=== PATIENT | male | born 1980 | race Caucasian/White ===

== ENCOUNTER 2018-04-11 20:18 | Inpatient (IN) ==
[2018-04-11] MEDS ORDERED: Acetylcysteine 20% Oral Liq 6,000 MG/30 ML Vial PO ONE (20:51)
[2018-04-11] MEDS ORDERED: Sod Chloride 0.9% Inj 1,000 ML IV.SIG ONE (20:52)
--- NOTE | 2018-04-11 21:08 | ED ---
HPI General Chief complaint: Overdose Stated complaint: poss overdose Time Seen by Provider: 04/11/18 20:53 History of Present Illness HPI narrative: 38-year-old male with history of Parkinson's disease presents with his for evaluation of Tylenol overdose. reports that prior to arrival they were arguing. The patient reportedly took a large amount of Tylenol in order to help him sleep. The reports that it was a 225 tablet bottle of 500 mg Tylenol and a third of it had been used prior to the ingestion. After the ingestion only 20 or 30 tablets were left. Therefore the estimated ingestion was 125 tablets of 500 mg Tylenol at approximately 7:30 PM this evening. No other coingestions. The patient's does report that he is a daily drinker, he denies drinking any alcohol today. Denies illicit drug use. Denies any desire to hurt himself. Denies any suicidal homicidal ideation. He is currently complaining of nausea. He has no other complaints at this time. Related Data Home Medications Medication Instructions Recorded Confirmed No Known Home Medications 04/11/18 04/11/18 Allergies Allergy/AdvReac Type Severity Reaction Status Date / Time No Known Allergies Allergy Verified 04/11/18 20:32 Review of Systems ROS: all other systems reviewed are negative PMFSH Social History Social History Substance History: Active Abuse Second Hand Smoke Exposure: No Smoking Status: Former smoker Tobacco Type: Cigarettes How Often Do You Have a Drink Containing Alcohol: Never Recent Travel in [facility] within the Last 8 Weeks: No Recent Out of Country Travel within the Last 8 Weeks: No Immunization History Tetanus Immunization: <5 Years Exam Narrative Exam Narrative: GENERAL: Well-developed well-nourished male who appears anxious. SKIN: Warm and dry. HEAD: Atraumatic. Normocephalic. EYES: Pupils equal and round. No scleral icterus. No injection or drainage. ENT: No nasal bleeding or discharge. Mucous membranes pink and moist. NECK: Trachea midline. No JVD. CARDIOVASCULAR: Regular rate and rhythm. No murmur appreciated. RESPIRATORY: No accessory muscle use. Clear to auscultation. Breath sounds equal bilaterally. GASTROINTESTINAL: Abdomen soft, mild tenderness to palpation in the epigastrium. MUSCULOSKELETAL: No obvious deformities. No clubbing. No cyanosis. No edema. NEUROLOGICAL: Awake and alert. No obvious cranial nerve deficits. Motor grossly within normal limits. Normal speech. PSYCHIATRIC: Anxious. Insight and judgment appear somewhat limited. Course Initial Documented Vital Signs Temperature 98.0 F 04/11/18 20:26 Pulse Rate 95 H 04/11/18 20:26 Respiratory Rate 18 04/11/18 20:26 Blood Pressure 147/72 H 04/11/18 20:26 Pulse Oximetry 97 04/11/18 20:26 Last Documented Vital Signs Temperature 99 F 04/13/18 20:00 Pulse Rate 63 04/14/18 06:00 Respiratory Rate 23 04/14/18 06:00 Blood Pressure 149/104 H 04/14/18 06:00 Pulse Oximetry 95 04/14/18 06:00 Medical Decision Making MDM Narrative Medical decision making narrative: The patient was placed on ECG monitoring and pulse oximetry. A 12-lead EKG was obtained revealing sinus rhythm with a rate of 96. Lab work has been ordered. Based on the history, the patient ingested a large amount of Tylenol at 7:30 PM this evening, oral Mucomyst protocol has been started. The patient was placed under a Morris act. The patient is declining Zofran for nausea, therefore Phenergan will be ordered for nausea. The patient had persistent nausea, Reglan was administered. His lab work is notable for an initial Tylenol level of 392. His alcohol level was 250. I discussed the patient with the on-call eligibility examiner Dr. Persaud who will admit. Medical Screen Exam Complete: Yes Emergency Medical Condition: Yes Differential Diagnosis Differential Diagnosis: Intentional overdose of Tylenol versus unintentional overdose of Tylenol versus liver failure versus adjustment reaction versus polysubstance abuse Lab Data Result diagrams: 04/13/18 08:03 04/13/18 08:03 Lab Results 04/11/18 04/11/18 04/11/18 Range/Units 21:00 21:00 21:00 WBC 5.6 (4.0-11.0) th/mm3 RBC 5.15 (4.50-5.90) mil/mm3 Hgb 16.7 (13.0-17.0) gm/dL Hct 48.5 (39.0-51.0) % MCV 94.2 (80.0-100.0) fL MCH 32.4 (27.0-34.0) pg MCHC 34.4 (32.0-36.0) % RDW 13.1 (11.6-17.2) % Plt Count 247 (150-450) th/mm3 MPV 7.7 (7.0-11.0) fL Neut % (Auto) 35.8 (16.0-70.0) % Lymph % (Auto) 56.0 H (9.0-44.0) % Maverick % (Auto) 7.3 (0.0-8.0) % Eos % (Auto) 0.3 (0.0-4.0) % Baso % (Auto) 0.6 (0.0-2.0) % Neut # (Auto) 2.0 (1.8-7.7) th/mm3 Lymph # (Auto) 3.1 (1.0-4.8) th/mm3 Maverick # (Auto) 0.4 (0.0-0.9) th/mm3 Eos # (Auto) 0.0 (0.0-0.4) th/mm3 Baso # (Auto) 0.0 (0.0-0.2) th/mm3 WBC Differential . Differential Comment Auto diff final PT 10.8 (9.8-11.6) sec INR 1.1 Ratio APTT 28.5 (23.4-31.7) sec Sodium 143 (136-145) meq/L Potassium 4.1 (3.5-5.1) meq/L Chloride 108 H (98-107) meq/L Carbon Dioxide 26.5 (21.0-32.0) meq/L Anion Gap 9 (5-15) meq/L BUN 9 (7-18) mg/dL Creatinine 0.91 (0.60-1.30) mg/dL Estimated GFR Greater than 89 (>89) mL/min Random Glucose 103 (74-106) mg/dL Calcium 8.7 (8.5-10.1) mg/dL Magnesium 2.1 (1.5-2.5) mg/dL Total Bilirubin 0.3 (0.2-1.0) mg/dL AST 26 (15-37) U/L ALT 31 (12-78) U/L Alkaline Phosphatase 52 (45-117) U/L Total Protein 8.1 (6.4-8.2) g/dL Albumin 4.2 (3.4-5.0) g/dL Lipase 114 (73-393) U/L Nasal Screen MRSA (PCR) (Negative) Salicylates (2.8-20.0) mg/dL Urine Opiates Screen (Neg) Acetaminophen 392.0 H* (10.0-30.0) mcg/mL Ur Barbiturates Screen (Neg) Ur Amphetamines Screen (Neg) U Benzodiazepines Scrn (Neg) Urine Cocaine Screen (Neg) U Cannabinoids Screen (Neg) Serum Alcohol 250 H (0-5) mg/dL 04/11/18 04/12/18 04/12/18 Range/Units 21:00 02:45 03:59 WBC 5.2 (4.0-11.0) th/mm3 RBC 4.65 (4.50-5.90) mil/mm3 Hgb 15.1 (13.0-17.0) gm/dL Hct 44.3 (39.0-51.0) % MCV 95.3 (80.0-100.0) fL MCH 32.5 (27.0-34.0) pg MCHC 34.1 (32.0-36.0) % RDW 13.2 (11.6-17.2) % Plt Count 215 (150-450) th/mm3 MPV 7.7 (7.0-11.0) fL Neut % (Auto) 69.6 (16.0-70.0) % Lymph % (Auto) 25.8 (9.0-44.0) % Maverick % (Auto) 4.4 (0.0-8.0) % Eos % (Auto) 0.0 (0.0-4.0) % Baso % (Auto) 0.2 (0.0-2.0) % Neut # (Auto) 3.6 (1.8-7.7) th/mm3 Lymph # (Auto) 1.3 (1.0-4.8) th/mm3 Maverick # (Auto) 0.2 (0.0-0.9) th/mm3 Eos # (Auto) 0.0 (0.0-0.4) th/mm3 Baso # (Auto) 0.0 (0.0-0.2) th/mm3 WBC Differential . Differential Comment Auto diff final PT (9.8-11.6) sec INR Ratio APTT (23.4-31.7) sec Sodium (136-145) meq/L Potassium (3.5-5.1) meq/L Chloride (98-107) meq/L Carbon Dioxide (21.0-32.0) meq/L Anion Gap (5-15) meq/L BUN (7-18) mg/dL Creatinine (0.60-1.30) mg/dL Estimated GFR (>89) mL/min Random Glucose (74-106) mg/dL Calcium (8.5-10.1) mg/dL Magnesium (1.5-2.5) mg/dL Total Bilirubin (0.2-1.0) mg/dL AST (15-37) U/L ALT (12-78) U/L Alkaline Phosphatase (45-117) U/L Total Protein (6.4-8.2) g/dL Albumin (3.4-5.0) g/dL Lipase (73-393) U/L Nasal Screen MRSA (PCR) Not detected (Negative) Salicylates 1.8 L (2.8-20.0) mg/dL Urine Opiates Screen (Neg) Acetaminophen (10.0-30.0) mcg/mL Ur Barbiturates Screen (Neg) Ur Amphetamines Screen (Neg) U Benzodiazepines Scrn (Neg) Urine Cocaine Screen (Neg) U Cannabinoids Screen (Neg) Serum Alcohol (0-5) mg/dL 04/12/18 04/12/18 04/12/18 Range/Units 03:59 03:59 15:00 WBC (4.0-11.0) th/mm3 RBC (4.50-5.90) mil/mm3 Hgb (13.0-17.0) gm/dL Hct (39.0-51.0) % MCV (80.0-100.0) fL MCH (27.0-34.0) pg MCHC (32.0-36.0) % RDW (11.6-17.2) % Plt Count (150-450) th/mm3 MPV (7.0-11.0) fL Neut % (Auto) (16.0-70.0) % Lymph % (Auto) (9.0-44.0) % Maverick % (Auto) (0.0-8.0) % Eos % (Auto) (0.0-4.0) % Baso % (Auto) (0.0-2.0) % Neut # (Auto) (1.8-7.7) th/mm3 Lymph # (Auto) (1.0-4.8) th/mm3 Maverick # (Auto) (0.0-0.9) th/mm3 Eos # (Auto) (0.0-0.4) th/mm3 Baso # (Auto) (0.0-0.2) th/mm3 WBC Differential Differential Comment PT 11.8 H (9.8-11.6) sec INR 1.2 Ratio APTT 26.1 (23.4-31.7) sec Sodium 147 H 144 (136-145) meq/L Potassium 3.4 L 2.6 L* D (3.5-5.1) meq/L Chloride 111 H 109 H (98-107) meq/L Carbon Dioxide 23.2 24.7 (21.0-32.0) meq/L Anion Gap 13 10 (5-15) meq/L BUN 8 8 (7-18) mg/dL Creatinine 0.89 1.00 (0.60-1.30) mg/dL Estimated GFR Greater than 89 83 L (>89) mL/min Random Glucose 112 H 121 H (74-106) mg/dL Calcium 7.9 L D 7.7 L (8.5-10.1) mg/dL Magnesium 1.9 (1.5-2.5) mg/dL Total Bilirubin 0.4 (0.2-1.0) mg/dL AST 22 (15-37) U/L ALT 28 (12-78) U/L Alkaline Phosphatase 45 (45-117) U/L Total Protein 7.2 D (6.4-8.2) g/dL Albumin 3.7 (3.4-5.0) g/dL Lipase (73-393) U/L Nasal Screen MRSA (PCR) (Negative) Salicylates (2.8-20.0) mg/dL Urine Opiates Screen (Neg) Acetaminophen (10.0-30.0) mcg/mL Ur Barbiturates Screen (Neg) Ur Amphetamines Screen (Neg) U Benzodiazepines Scrn (Neg) Urine Cocaine Screen (Neg) U Cannabinoids Screen (Neg) Serum Alcohol (0-5) mg/dL 02/12/19 02/12/19 02/13/19 Range/Units 17:00 17:42 08:03 WBC 4.5 (4.0-11.0) th/mm3 RBC 4.31 L (4.50-5.90) mil/mm3 Hgb 14.4 (13.0-17.0) gm/dL Hct 41.7 (39.0-51.0) % MCV 96.6 (80.0-100.0) fL MCH 33.5 (27.0-34.0) pg MCHC 34.7 (32.0-36.0) % RDW 13.7 (11.6-17.2) % Plt Count 175 (150-450) th/mm3 MPV 7.5 (7.0-11.0) fL Neut % (Auto) (16.0-70.0) % Lymph % (Auto) (9.0-44.0) % Maverick % (Auto) (0.0-8.0) % Eos % (Auto) (0.0-4.0) % Baso % (Auto) (0.0-2.0) % Neut # (Auto) (1.8-7.7) th/mm3 Lymph # (Auto) (1.0-4.8) th/mm3 Maverick # (Auto) (0.0-0.9) th/mm3 Eos # (Auto) (0.0-0.4) th/mm3 Baso # (Auto) (0.0-0.2) th/mm3 WBC Differential Differential Comment PT (9.8-11.6) sec INR Ratio APTT (23.4-31.7) sec Sodium (136-145) meq/L Potassium 2.7 L* (3.5-5.1) meq/L Chloride (98-107) meq/L Carbon Dioxide (21.0-32.0) meq/L Anion Gap (5-15) meq/L BUN (7-18) mg/dL Creatinine (0.60-1.30) mg/dL Estimated GFR (>89) mL/min Random Glucose (74-106) mg/dL Calcium (8.5-10.1) mg/dL Magnesium (1.5-2.5) mg/dL Total Bilirubin (0.2-1.0) mg/dL AST (15-37) U/L ALT (12-78) U/L Alkaline Phosphatase (45-117) U/L Total Protein (6.4-8.2) g/dL Albumin (3.4-5.0) g/dL Lipase (73-393) U/L Nasal Screen MRSA (PCR) (Negative) Salicylates (2.8-20.0) mg/dL Urine Opiates Screen Neg (Neg) Acetaminophen (10.0-30.0) mcg/mL Ur Barbiturates Screen Neg (Neg) Ur Amphetamines Screen Neg (Neg) U Benzodiazepines Scrn Neg (Neg) Urine Cocaine Screen Neg (Neg) U Cannabinoids Screen Neg (Neg) Serum Alcohol (0-5) mg/dL 04/13/18 04/13/18 04/13/18 Range/Units 08:03 08:03 16:28 WBC (4.0-11.0) th/mm3 RBC (4.50-5.90) mil/mm3 Hgb (13.0-17.0) gm/dL Hct (39.0-51.0) % MCV (80.0-100.0) fL MCH (27.0-34.0) pg MCHC (32.0-36.0) % RDW (11.6-17.2) % Plt Count (150-450) th/mm3 MPV (7.0-11.0) fL Neut % (Auto) (16.0-70.0) % Lymph % (Auto) (9.0-44.0) % Maverick % (Auto) (0.0-8.0) % Eos % (Auto) (0.0-4.0) % Baso % (Auto) (0.0-2.0) % Neut # (Auto) (1.8-7.7) th/mm3 Lymph # (Auto) (1.0-4.8) th/mm3 Maverick # (Auto) (0.0-0.9) th/mm3 Eos # (Auto) (0.0-0.4) th/mm3 Baso # (Auto) (0.0-0.2) th/mm3 WBC Differential Differential Comment PT 12.8 H 12.1 H (9.8-11.6) sec INR 1.3 1.2 Ratio APTT (23.4-31.7) sec Sodium 144 (136-145) meq/L Potassium 3.4 L (3.5-5.1) meq/L Chloride 111 H (98-107) meq/L Carbon Dioxide 24.2 (21.0-32.0) meq/L Anion Gap 9 (5-15) meq/L BUN 4 L (7-18) mg/dL Creatinine 0.67 (0.60-1.30) mg/dL Estimated GFR Greater than 89 (>89) mL/min Random Glucose 92 (74-106) mg/dL Calcium 7.6 L (8.5-10.1) mg/dL Magnesium (1.5-2.5) mg/dL Total Bilirubin (0.2-1.0) mg/dL AST (15-37) U/L ALT (12-78) U/L Alkaline Phosphatase (45-117) U/L Total Protein (6.4-8.2) g/dL Albumin (3.4-5.0) g/dL Lipase (73-393) U/L Nasal Screen MRSA (PCR) (Negative) Salicylates (2.8-20.0) mg/dL Urine Opiates Screen (Neg) Acetaminophen Less than 2.0 L (10.0-30.0) mcg/mL Ur Barbiturates Screen (Neg) Ur Amphetamines Screen (Neg) U Benzodiazepines Scrn (Neg) Urine Cocaine Screen (Neg) U Cannabinoids Screen (Neg) Serum Alcohol (0-5) mg/dL Discharge Plan Discharge Disposition Patient Disposition: ED Admit(ED Internal Use Only) Discharge Condition Condition: Stable Discharge Order Discharge Orders: ED Use Only Admit Order (Routine); Ordered 04/11/18 Ordered By: Edy Mohan Discharge Details Diagnosis: Acetaminophen overdose, Alcohol intoxication Physicians Team ED Provider: Shayy Morse ED Midlevel Provider: Edy Mohan Primary Care Provider: UNKNOWN, Attending Provider: Anni Stevenson Other Providers: Dayo Weaver Status ED Status: Left Department Discharge Information Discharge Date/Time: 04/12/18 03:00
[2018-04-11 21:19] LABS: Baso % (Auto) 0.6 % (0.0-2.0); Eos % (Auto) 0.3 % (0.0-4.0); Hematocrit 48.5 % (39.0-51.0); Hemoglobin 16.7 gm/dL (13.0-17.0); Lymph # (Auto) 3.1 th/mm3 (1.0-4.8); Mean Corpuscular HGB Conc 34.4 % (32.0-36.0); Mean Corpuscular Hemoglobin 32.4 pg (27.0-34.0); Mean Corpuscular Volume 94.2 fL (80.0-100.0); Mean Platelet Volume 7.7 fL (7.0-11.0); Mono # (Auto) 0.4 th/mm3 (0.0-0.9); Mono % (Auto) 7.3 % (0.0-8.0); Neut % (Auto) 35.8 % (16.0-70.0); Platelet Count 247 th/mm3 (150-450); Red Blood Count 5.15 mil/mm3 (4.50-5.90); Red Cell Distribution Width 13.1 % (11.6-17.2); White Blood Count 5.6 th/mm3 (4.0-11.0)
[2018-04-11] MEDS: Acetylcysteine 20% Oral Liq 6,000 MG/30 ML Vial PO SCH (21:49)
[2018-04-11 22:01] LABS: Activated Partial Thrombo Time 28.5 sec (23.4-31.7); INR 1.1 Ratio; Prothrombin Time 10.8 sec (9.8-11.6)
[2018-04-11 22:25] LABS: Alanine Aminotransferase 31 U/L (12-78); Albumin 4.2 g/dL (3.4-5.0); Alkaline Phosphatase 52 U/L (45-117); Anion Gap 9 meq/L (5-15); Aspartate Aminotransferase 26 U/L (15-37); Blood Urea Nitrogen 9 mg/dL (7-18); Calcium 8.7 mg/dL (8.5-10.1); Carbon Dioxide 26.5 meq/L (21.0-32.0); Chloride 108 meq/L (98-107); Glomerular Filtration Rate Greater Than 89 mL/min (>89); Glucose,Random 103 mg/dL (74-106); Lipase 114 U/L (73-393); Magnesium 2.1 mg/dL (1.5-2.5); Potassium 4.1 meq/L (3.5-5.1); Sodium 143 meq/L (136-145); Total Protein 8.1 g/dL (6.4-8.2)
[2018-04-11 22:28] LABS: Alcohol 250 mg/dL (0-5)
--- NOTE | 2018-04-11 23:25 | P.HPCC ---
History of Present Illness Primary Care Physician: UNKNOWN History of Present Illness: 38-year-old male with history of Parkinson's disease presents with his for evaluation of Tylenol overdose. reports that prior to arrival they were arguing. The patient reportedly took a large amount of Tylenol in order to help him sleep. The reports that it was a 225 tablet bottle of 500 mg Tylenol and a third of it had been used prior to the ingestion. After the ingestion only 20 or 30 tablets were left. Therefore the estimated ingestion was 125 tablets of 500 mg Tylenol at approximately 7:30 PM this evening. No other coingestions. The patient's does report that he is a daily drinker, he denies drinking any alcohol today. Denies illicit drug use. Denies any desire to hurt himself. Denies any suicidal homicidal ideation. He is currently complaining of nausea. He has no other complaints at this time. Inpatient Certification: I certify that the inpatient services were ordered in accordance with Medicare regulations governing the order. This includes certification that hospital inpatient services are reasonable and necessary and in the case of services not specified as inpatient-only under 42 CFR 419.22(n), that they are appropriately provided as inpatient services in accordance to with the 2-midnight benchmark under 43 CFR 412.3(e) Review of Systems All other systems reviewed negative except as stated in HPI [facility] - History History Provided By: Patient, Family Member - Medical History Medical History: Medical History (Last Reviewed 04/11/18 @ 20:47 by Norma Moncada RN) AA (alcohol abuse) Hypertension Parkinson disease - Surgical History Surgical History: Surgical History (Last Reviewed 04/11/18 @ 20:47 by Norma Moncada RN) S/P deep brain stimulator placement - Tobacco History Tobacco Use In Past 30 Days: Yes Smoking Status: Current every day smoker Tobacco Type: Cigarettes - Alcohol History How Often Do You Have a Drink Containing Alcohol: Monthly or less - Travel History Recent Travel in the [place] Within the Last 8 Weeks: No Recent Travel Out of the Country Within the Last 8 Weeks: No - Immunization History Tetanus Immunization: <5 Years Medications and Allergies Active Medications: Active Medications Acetylcysteine (Mucomyst 20% Oral Liq) 5,550 mg 70 mg/kg (5550 mg) PO Q4H [facility] Stop: 04/14/18 13:01 Last Admin: 04/11/18 21:49 Dose: Not Given Sodium Chloride (Ns Flush) 2 ml IV.FLUSH PRN PRN PRN Reason: FLUSH AFTER USING IV ACCESS Current Medications Acetylcysteine (Mucomyst 20% Oral Liq) 5,550 mg 70 mg/kg (5550 mg) PO Q4H [facility] Stop: 04/14/18 13:01 Last Admin: 04/12/18 01:15 Dose: 5,550 mg Al Hydroxide/Mg Hydroxide (Milk Of Magnesia Liq) 30 ml PO Q12H PRN PRN Reason: Mild Constipation Albuterol (Duoneb Neb (Prn)) 1 ampul NEB Q2HR NEB PRN PRN Reason: WHEEZING Bisacodyl (Dulcolax Supp) 10 mg RECTAL DAILY PRN PRN Reason: SEVERE CONSITIPATION Chlorhexidine Gluconate (Chlorhexidine 2% Cloth) 3 pack TOPICAL DAILY@0400 [facility] Stop: 04/17/18 03:59 Chlorhexidine Gluconate (Chlorhexidine 2% Cloth) 3 pack TOPICAL DAILY@0400 PRN PRN Reason: Extra cloth needed Stop: 04/17/18 03:59 Sodium Chloride (Ns Inj) 1,000 mls @ 84 mls/hr IV.CONT .[id number] [facility] Last Admin: 04/12/18 01:15 Dose: 84 mls/hr Lactulose (Lactulose Liq) 30 ml PO DAILY PRN PRN Reason: SEVERE CONSITIPATION Ondansetron HCl (Zofran Inj) 4 mg IV.PUSH Q6H PRN PRN Reason: NAUSEA OR VOMITING Senna/Docusate Sodium (Ariadne-Colace) 1 tab PO BID [facility] Sennosides (Senokot) 17.2 mg PO Q12H PRN PRN Reason: Moderate Constipation Sodium Chloride (Ns Flush) 2 ml IV.FLUSH PRN PRN PRN Reason: FLUSH AFTER USING IV ACCESS Sodium Chloride (Ns Flush) 2 ml IV.FLUSH BID [facility] Sodium Chloride (Ns Flush) 2 ml IV.FLUSH PRN PRN PRN Reason: FLUSH AFTER USING IV ACCESS Allergies Allergy/AdvReac Type Severity Reaction Status Date / Time No Known Allergies Allergy Verified 04/11/18 20:32 Home Medications Medication Instructions Recorded Confirmed Type No Known Home Medications 04/11/18 04/11/18 History Results - Labs CBC & Chem 7: 04/11/18 21:00 04/11/18 21:00 Labs: Short CBC 04/11/18 Range/Units 21:00 WBC 5.6 (4.0-11.0) th/mm3 Hgb 16.7 (13.0-17.0) gm/dL Hct 48.5 (39.0-51.0) % Plt Count 247 (150-450) th/mm3 BMP 04/11/18 21:00 Sodium 143 Potassium 4.1 Chloride 108 H Carbon Dioxide 26.5 BUN 9 Creatinine 0.91 Calcium 8.7 Liver Function 04/11/18 Range/Units 21:00 Total Bilirubin 0.3 (0.2-1.0) mg/dL AST 26 (15-37) U/L ALT 31 (12-78) U/L Alkaline Phosphatase 52 (45-117) U/L Albumin 4.2 (3.4-5.0) g/dL Exam Vital signs: Vital Signs 04/11/18 20:26 04/11/18 20:46 04/11/18 21:15 Temperature 98.0 F Pulse Rate 95 H 95 H Respiratory Rate 18 18 Blood Pressure 147/72 H 145/75 H Pulse Oximetry 97 94 L 98 Intake & Output 04/11/18 04/11/18 04/12/18 06:59 18:59 06:59 Weight 79.379 kg - Constitutional moderate distress - Routine HEENT Exam Head: Present: atraumatic Eye: Present: PERRL, normal accommodation ENT: Present: mucous membranes dry - Routine Neck Exam Present: supple, full ROM. Absent: JVD, carotid bruit - Routine Respiratory Exam Absent: accessory muscle use, wheezes, crackles - Routine Cardiovascular Exam Present: RRR, S1, S2 - Routine Abdominal Exam Present: soft, normoactive bowel sounds - Routine Extremities Exam Absent: cyanosis, clubbing, edema - Routine Skin Exam Present: intact. Absent: cyanosis, erythema - Routine Neurological Exam Present: alert, oriented X3, moving all extremities Septic Shock Reassessment Septic shock perfusion: reassessment completed Caprini VTE Risk Assessment Caprini VTE Risk Assessment: Moderate/High Risk (score >= 2) Caprini Risk Assessment Model: Point Value = 1 Point Value = 2 Point Value = 3 Point Value = 5 Age 41-60 Minor surgery BMI > 25 kg/m2 Swollen legs Varicose veins or History of unexplained or recurrent spontaneous Oral contraceptives or hormone replacement Sepsis (< 1 month) Serious lung disease, including pneumonia (< 1 month) Abnormal pulmonary function Acute myocardial infarction Congestive heart failure (< 1 month) History of inflammatory bowel disease Medical patient at bed rest Age 61-74 Arthroscopic surgery Major open surgery (> 45 min) Laparoscopic surgery (> 45 min) Malignancy Confined to bed (> 72 hours) Immobilizing plaster cast Central venous access Age >= 75 History of VTE Family history of VTE Factor V Leiden Prothrombin [id number] Lupus anticoagulant Anticardiolipin antibodies Elevated serum homocysteine Heparin-induced thrombocytopenia Other congenital or acquired thrombophilia Stroke (< 1 month) Elective arthroplasty Hip, pelvis, or leg fracture Acute spinal cord injury (< 1 month) Prophylaxis Regimen: Total Risk Factor Score Risk Level Prophylaxis Regimen 0-1 Low Early ambulation 2 Moderate Order ONE of the following: *Sequential Compression Device (SCD) *Heparin 5000 units SQ BID 3-4 Higher Order ONE of the following medications: *Heparin 5000 units SQ TID *Enoxaparin/Lovenox 40 mg SQ daily (WT < 150 kg, CrCl > 30 mL/min) *Enoxaparin/Lovenox 30 mg SQ daily (WT < 150 kg, CrCl > 10-29 mL/min) *Enoxaparin/Lovenox 30 mg SQ BID (WT < 150 kg, CrCl > 30 mL/min) AND/OR *Sequential Compression Device (SCD) 5 or more Highest Order ONE of the following medications: *Heparin 5000 units SQ TID (Preferred with Epidurals) *Enoxaparin/Lovenox 40 mg SQ daily (WT < 150 kg, CrCl > 30 mL/min) *Enoxaparin/Lovenox 30 mg SQ daily (WT < 150 kg, CrCl > 10-29 mL/min) *Enoxaparin/Lovenox 30 mg SQ BID (WT < 150 kg, CrCl > 30 mL/min) AND *Sequential Compression Device (SCD) Assessment and Plan - Assessment and Plan Plan: Tylenol overdose -Poison Control Center appreciated -Acetylcysteine infusion -Frequent labs -Monitor for liver failure Hypertension -Labetalol PRN to keep SBP less than 140 -Resume home meds when available and okay to p.o. Parkinson's disease -Resume home meds when available DVT GI prophylaxis -Teds SCDs -Early aggressive mobilization -Hold pharmacological DVT prophylaxis due to potential liver failure -Pepcid 35 minutes of critical care
[2018-04-11] MEDS ORDERED: Bisacodyl 10 MG Supp RECTAL PRN (23:33)
[2018-04-12] MEDS: Acetylcysteine 20% Oral Liq 6,000 MG/30 ML Vial PO SCH ×6 (01:15→20:13)
[2018-04-12] MEDS: Sod Chloride 0.9% Inj 1,000 ML IV.CONT SCH ×2 (01:15→15:39)
[2018-04-12] MEDS: Chlorhexidine Gluconate 2% 1 Pack (2 Cloths) TOPICAL SCH (03:35)
[2018-04-12] MEDS ORDERED: Chlorhexidine Gluconate 2% 1 Pack (2 Cloths) TOPICAL PRN (04:00)
[2018-04-12 05:05] LABS: Baso % (Auto) 0.2 % (0.0-2.0); Hematocrit 44.3 % (39.0-51.0); Hemoglobin 15.1 gm/dL (13.0-17.0); Lymph # (Auto) 1.3 th/mm3 (1.0-4.8); Lymph % (Auto) 25.8 % (9.0-44.0); Mean Corpuscular HGB Conc 34.1 % (32.0-36.0); Mean Corpuscular Hemoglobin 32.5 pg (27.0-34.0); Mean Corpuscular Volume 95.3 fL (80.0-100.0); Mean Platelet Volume 7.7 fL (7.0-11.0); Mono # (Auto) 0.2 th/mm3 (0.0-0.9); Mono % (Auto) 4.4 % (0.0-8.0); Neut # (Auto) 3.6 th/mm3 (1.8-7.7); Neut % (Auto) 69.6 % (16.0-70.0); Platelet Count 215 th/mm3 (150-450); Red Blood Count 4.65 mil/mm3 (4.50-5.90); Red Cell Distribution Width 13.2 % (11.6-17.2); White Blood Count 5.2 th/mm3 (4.0-11.0)
[2018-04-12 05:06] LABS: Activated Partial Thrombo Time 26.1 sec (23.4-31.7); INR 1.2 Ratio; Prothrombin Time 11.8 sec (9.8-11.6)
[2018-04-12 05:21] LABS: Alanine Aminotransferase 28 U/L (12-78); Albumin 3.7 g/dL (3.4-5.0); Anion Gap 13 meq/L (5-15); Aspartate Aminotransferase 22 U/L (15-37); Blood Urea Nitrogen 8 mg/dL (7-18); Calcium 7.9 mg/dL (8.5-10.1); Carbon Dioxide 23.2 meq/L (21.0-32.0); Chloride 111 meq/L (98-107); Glomerular Filtration Rate Greater Than 89 mL/min (>89); Glucose,Random 112 mg/dL (74-106); Magnesium 1.9 mg/dL (1.5-2.5); Potassium 3.4 meq/L (3.5-5.1); Sodium 147 meq/L (136-145)
[2018-04-12 05:24] LABS: Alkaline Phosphatase 45 U/L (45-117); Total Protein 7.2 g/dL (6.4-8.2)
[2018-04-12] MEDS: Senna/Docusate Sodium 8.6/50 MG Tablet PO SCH ×2 (09:50→20:14)
--- NOTE | 2018-04-12 10:58 | P.PNCC ---
Subjective Subjective Remarks/Hospital Course: 04/12: No acute changes overnight Dr. Peters psychiatrist at bedside evaluation performed plan for Morris Act. Resolution of nausea. Clear liquid diet initiated. Discussed with poison control recent lab values. Objective Vital Signs / I&O: Vital Signs 04/11/18 20:26 04/11/18 20:46 04/11/18 21:15 Temperature 98.0 F Pulse Rate 95 H 95 H Respiratory Rate 18 18 Blood Pressure 147/72 H 145/75 H Pulse Oximetry 97 94 L 98 04/11/18 23:00 04/12/18 01:00 04/12/18 03:00 Temperature 98 F Pulse Rate 66 59 L 63 Respiratory Rate 15 17 17 Blood Pressure 138/76 114/67 121/71 Pulse Oximetry 97 98 97 04/12/18 03:24 04/12/18 03:26 04/12/18 03:30 Temperature Pulse Rate 79 69 57 L Respiratory Rate 28 H 17 Blood Pressure 115/64 Pulse Oximetry 96 95 04/12/18 03:45 04/12/18 04:00 04/12/18 04:15 Temperature 98.0 F Pulse Rate 55 L 57 L 61 Respiratory Rate 21 32 H 19 Blood Pressure 101/56 L 101/55 L 85/53 L Pulse Oximetry 94 L 96 94 L 04/12/18 04:30 04/12/18 04:45 04/12/18 05:00 Temperature Pulse Rate 60 54 L 56 L Respiratory Rate 20 18 20 Blood Pressure 108/69 116/72 120/74 Pulse Oximetry 94 L 93 L 94 L 04/12/18 05:15 04/12/18 05:30 04/12/18 05:45 Temperature Pulse Rate 56 L 64 56 L Respiratory Rate 20 23 34 H Blood Pressure 102/66 125/99 H 112/77 Pulse Oximetry 96 93 L 94 L 04/12/18 06:00 04/12/18 06:15 Temperature Pulse Rate 59 L 55 L Respiratory Rate 21 20 Blood Pressure 117/72 119/73 Pulse Oximetry 94 L 93 L Intake & Output 04/11/18 04/12/18 04/12/18 18:59 06:59 18:59 Intake Total 1223 / 1223 Balance 1223 / 1223 Weight 86 kg Intake: IV 1223 / 1223 NS Inj 1,000 ML @ 84 mls/hr IV. 223 / 223 CONT .[id number] [facility] Rx#:[id number] NS Inj 1,000 ML @ Wide Open IV. 1000 / 1000 SIG BOLUS ONE Rx#:[id number] Other: Weight On Admission 85.5 kg Result Diagrams: 04/12/18 03:59 04/12/18 03:59 Other Results: Laboratory Results WBC 5.2 th/mm3 (4.0-11.0) 04/12/18 03:59 RBC 4.65 mil/mm3 (4.50-5.90) 04/12/18 03:59 Hgb 15.1 gm/dL (13.0-17.0) 04/12/18 03:59 Hct 44.3 % (39.0-51.0) 04/12/18 03:59 MCV 95.3 fL (80.0-100.0) 04/12/18 03:59 MCH 32.5 pg (27.0-34.0) 04/12/18 03:59 MCHC 34.1 % (32.0-36.0) 04/12/18 03:59 RDW 13.2 % (11.6-17.2) 04/12/18 03:59 Plt Count 215 th/mm3 (150-450) 04/12/18 03:59 MPV 7.7 fL (7.0-11.0) 04/12/18 03:59 Neut % (Auto) 69.6 % (16.0-70.0) 04/12/18 03:59 Lymph % (Auto) 25.8 % (9.0-44.0) 04/12/18 03:59 [place] % (Auto) 4.4 % (0.0-8.0) 04/12/18 03:59 Eos % (Auto) 0.0 % (0.0-4.0) 04/12/18 03:59 Baso % (Auto) 0.2 % (0.0-2.0) 04/12/18 03:59 Neut # (Auto) 3.6 th/mm3 (1.8-7.7) 04/12/18 03:59 Lymph # (Auto) 1.3 th/mm3 (1.0-4.8) 04/12/18 03:59 [place] # (Auto) 0.2 th/mm3 (0.0-0.9) 04/12/18 03:59 Eos # (Auto) 0.0 th/mm3 (0.0-0.4) 04/12/18 03:59 Baso # (Auto) 0.0 th/mm3 (0.0-0.2) 04/12/18 03:59 WBC Differential . 04/12/18 03:59 Differential Comment Auto diff final 04/12/18 03:59 PT 11.8 sec (9.8-11.6) H 04/12/18 03:59 INR 1.2 Ratio 04/12/18 03:59 APTT 26.1 sec (23.4-31.7) 04/12/18 03:59 Sodium 147 meq/L (136-145) H 04/12/18 03:59 Potassium 3.4 meq/L (3.5-5.1) L 04/12/18 03:59 Chloride 111 meq/L (98-107) H 04/12/18 03:59 Carbon Dioxide 23.2 meq/L (21.0-32.0) 04/12/18 03:59 Anion Gap 13 meq/L (5-15) 04/12/18 03:59 BUN 8 mg/dL (7-18) 04/12/18 03:59 Creatinine 0.89 mg/dL (0.60-1.30) 04/12/18 03:59 Estimated GFR Greater than 89 mL/min (>89) 04/12/18 03:59 Random Glucose 112 mg/dL (74-106) H 04/12/18 03:59 Calcium 7.9 mg/dL (8.5-10.1) L D 04/12/18 03:59 Magnesium 1.9 mg/dL (1.5-2.5) 04/12/18 03:59 Total Bilirubin 0.4 mg/dL (0.2-1.0) 04/12/18 03:59 AST 22 U/L (15-37) 04/12/18 03:59 ALT 28 U/L (12-78) 04/12/18 03:59 Alkaline Phosphatase 45 U/L (45-117) 04/12/18 03:59 Total Protein 7.2 g/dL (6.4-8.2) D 04/12/18 03:59 Albumin 3.7 g/dL (3.4-5.0) 04/12/18 03:59 Lipase 114 U/L (73-393) 04/11/18 21:00 Nasal Screen MRSA (PCR) Not detected (Negative) 04/12/18 02:45 Salicylates 1.8 mg/dL (2.8-20.0) L 04/11/18 21:00 Acetaminophen 392.0 mcg/mL (10.0-30.0) H* 04/11/18 21:00 Serum Alcohol 250 mg/dL (0-5) H 04/11/18 21:00 Objective Remarks: GENERAL: Is a well-developed well-nourished male, flat affect noted SKIN: Warm and dry. HEAD: Atraumatic. Normocephalic. EYES: Pupils equal and round. No scleral icterus. No injection or drainage. ENT: No nasal bleeding or discharge. Mucous membranes pink and moist. NECK: Trachea midline. No JVD. CARDIOVASCULAR: Normal rate, regular rhythm. RESPIRATORY: No accessory muscle use. Clear to auscultation. Breath sounds equal bilaterally. GASTROINTESTINAL: Abdomen soft, non-tender, nondistended. No guarding. MUSCULOSKELETAL: Extremities without clubbing, cyanosis, or edema. No obvious deformities. NEUROLOGICAL: Awake and alert. RASS 0. No gross focal/sensory deficits. Follows commands in all 4 extremities. Assessment and Plan - Assessment and Plan Plan: Tylenol overdose -Poison Control Center following -Acetylcysteine infusion -Frequent labs -Monitor for liver failure -Follow-up BMP and INR this afternoon -Initiate clear liquid diet for lunch will advance as tolerated Hypertension -Labetalol PRN to keep SBP less than 140 -Resume home meds when available and okay to p.o. Parkinson's disease -Resume home meds when available DVT GI prophylaxis -Teds SCDs -Early aggressive mobilization -Hold pharmacological DVT prophylaxis due to potential liver failure -Pepcid Level 3 follow-up Code Status: Full Discussed Condition With: Dr. Peters, psychiatrist, patient and [employer] at bedside
--- NOTE | 2018-04-12 11:30 | P.DIET ---
Nutritional Evaluation Type of nutrition evaluation: initial Nutrition screening: Weight Loss > 10 lbs (Weight loss screen) Objective - Diagnosis Tylenol overdose - Objective Body Mass Index: 26.4 [place] body weight: 81 kg (178) % IBW: 108 Body Weight Used for Calculations: Actual (86kg) Energy Needs - Lower Range (kCal/kg): 25 Energy Needs - Upper Range (kCal/kg): 30 Lower Limit kCal/kg (kCals): 2,150 Upper Limit kCal/kg (kCals): 2,580 Lower Limit Protein Factor (Grams per Kg): 0.8 Upper Limit Protein Factor (Grams per Kg): 1.0 Lower Protein Needs (Protein): 69 Upper Protein Needs (Protein): 86 Dietitian Reviewed in Medical Record: Current diet, Curent medications, Intake & Output, Labs, Medical history Diet Order: Clear liquids Objective Comments: PMH; Parkinsons, HTN, alcohol abuse Labs; NA 147, K 3.4, Glucose 112 Medications; reviewed Assessment Assessment: Weight loss screen; Pt presents to ED with after overdose from tylenol and is currently at nutritional risk related to recent unplanned weight loss. Pt currently ordered for clear liquid diet with PO intake not yet established. Will send Ensure clear BID in order to support PO intake and minimize further weight loss. Each can of ensure clear will provide 200kcal and 7g protein. Labs and medications reviewed. Will continue to monitor PO intake and supplement acceptance. Recommendations: 1. Ensure clear nutritional supplement BID 2. Monitor PO intake and supplement acceptance Dietitian to Monitor: Lab values, Supplement acceptance, Diet tolerance, PO Intake, Medical course
--- NOTE | 2018-04-12 12:31 | ECG ---
Date Performed: 04/11/2018 Time Performed: 20:45:35 PTAGE: 38 years EKG: Sinus rhythm NORMAL ECG NO PREVIOUS TRACING DOCTOR: Basilia Li Interpretating Date/Time 04/12/2018 12:27:29
--- NOTE | 2018-04-12 14:12 | P.CONPSY ---
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 reports that prior to arrival they were arguing. The patient reportedly took a large amount of Tylenol in order to help him sleep. The reports that it was a 225 tablet bottle of 500 mg Tylenol and a third of it had been used prior to the ingestion. After the ingestion only 20 or 30 tablets were left. Therefore the estimated ingestion was 125 tablets of 500 mg Tylenol at approximately 7:30 PM this evening. No other congestions. The patient's does report that he is a daily drinker, he denies drinking any alcohol today. But his BAL is 250 on arrival. He denies the use of drugs, but U tox was not done. On my psychiatric evaluation today the patient is irritable, superficially cooperative, kind of resistant to the evaluation. The patient reports that he did not try to commit suicide, he says that he just wanted to go to sleep. He says that he has no being able to sleep for at least 3 days, that he took a lot of melatonin, but he did not go to sleep. He says that in the past he has been in many medication for insomnia , but none of them worked well. Patient states that he was tired of the insomnia, and he took the Tylenol to go to sleep. He says that he has been in a good mood, that he has not been depressed, he has been at baseline. When I confronted the patient about the fact that he has been in several medications in the past and he knows that the Tylenol is not a medication to sleep, he becomes quite upset and irritable and refuses to continue to talk to me. I also asked him for permission to call his , and he becomes even more verbally hostile with me. 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 Review of Systems All other systems reviewed negative except as stated in HPI Psychiatric: Reports depression, Reports irritability PMFSH - History History Provided By: Patient - Medical History Medical History: Medical History (Last Reviewed 04/12/18 @ 07:40 by Carmen Noriega) AA (alcohol abuse) Hypertension Parkinson disease - Surgical History Surgical History: Surgical History (Last Reviewed 04/11/18 @ 20:47 by Norma Moncada RN) S/P deep brain stimulator placement - Family History Family History: Family History (Last Reviewed 04/12/18 @ 07:40 by Carmen Noriega) Uncle Depression - Tobacco History Second Hand Smoke Exposure: No Tobacco Use In Past 30 Days: Yes Smoking Status: Former smoker Tobacco Type: Cigarettes - Alcohol History How Often Do You Have a Drink Containing Alcohol: Never - Substance Use History Substance History: Active Abuse - Substance Use Type Alcohol Status: Active Route Used: By Mouth Frequency: 3-4 liquor drinks Comment: drinks to forget - Travel History Recent Travel in the [facility] Within the Last 8 Weeks: No Recent Travel Out of the Country Within the Last 8 Weeks: No - Immunization History Tetanus Immunization: <5 Years Hx Influenza Vaccine This Season: Yes Medications and Allergies Active Medications: Active Medications Acetylcysteine (Mucomyst 20% Oral Liq) 5,550 mg 70 mg/kg (5550 mg) PO Q4H [facility] Stop: 04/14/18 13:01 Last Admin: 04/12/18 09:49 Dose: 5,550 mg Al Hydroxide/Mg Hydroxide (Milk Of Magnesia Liq) 30 ml PO Q12H PRN PRN Reason: Mild Constipation Albuterol (Duoneb Neb (Prn)) 1 ampul NEB Q2HR NEB PRN PRN Reason: WHEEZING Bisacodyl (Dulcolax Supp) 10 mg RECTAL DAILY PRN PRN Reason: SEVERE CONSITIPATION Chlorhexidine Gluconate (Chlorhexidine 2% Cloth) 3 pack TOPICAL DAILY@0400 [facility] Stop: 04/17/18 03:59 Last Admin: 04/12/18 03:35 Dose: 3 pack Chlorhexidine Gluconate (Chlorhexidine 2% Cloth) 3 pack TOPICAL DAILY@0400 PRN PRN Reason: Extra cloth needed Stop: 04/17/18 03:59 Sodium Chloride (Ns Inj) 1,000 mls @ 84 mls/hr IV.CONT .[id number] [facility] Last Infusion: 04/12/18 06:00 Dose: 84 mls/hr Lactulose (Lactulose Liq) 30 ml PO DAILY PRN PRN Reason: SEVERE CONSITIPATION Ondansetron HCl (Zofran Inj) 4 mg IV.PUSH Q6H PRN PRN Reason: NAUSEA OR VOMITING Promethazine HCl (Phenergan Inj) 12.5 mg IM Q6H PRN PRN Reason: NAUSEA Last Admin: 04/12/18 05:35 Dose: 12.5 mg Senna/Docusate Sodium (Ariadne-Colace) 1 tab PO BID [facility] Last Admin: 04/12/18 09:50 Dose: Not Given Sennosides (Senokot) 17.2 mg PO Q12H PRN PRN Reason: Moderate Constipation Sodium Chloride (Ns Flush) 2 ml IV.FLUSH PRN PRN PRN Reason: FLUSH AFTER USING IV ACCESS Sodium Chloride (Ns Flush) 2 ml IV.FLUSH BID [facility] Last Admin: 04/12/18 09:50 Dose: 2 ml Sodium Chloride (Ns Flush) 2 ml IV.FLUSH PRN PRN PRN Reason: FLUSH AFTER USING IV ACCESS Allergies Allergy/AdvReac Type Severity Reaction Status Date / Time No Known Allergies Allergy Verified 04/11/18 20:32 Home Medications Medication Instructions Recorded Confirmed Type No Known Home Medications 04/11/18 04/11/18 History Exam Vital signs: Vital Signs 04/11/18 20:26 04/11/18 20:46 04/11/18 21:15 Temperature 98.0 F Pulse Rate 95 H 95 H Respiratory Rate 18 18 Blood Pressure 147/72 H 145/75 H Pulse Oximetry 97 94 L 98 04/11/18 23:00 04/12/18 01:00 04/12/18 03:00 Temperature 98 F Pulse Rate 66 59 L 63 Respiratory Rate 15 17 17 Blood Pressure 138/76 114/67 121/71 Pulse Oximetry 97 98 97 04/12/18 03:24 04/12/18 03:26 04/12/18 03:30 Temperature Pulse Rate 79 69 57 L Respiratory Rate 28 H 17 Blood Pressure 115/64 Pulse Oximetry 96 95 04/12/18 03:45 04/12/18 04:00 04/12/18 04:15 Temperature 98.0 F Pulse Rate 55 L 57 L 61 Respiratory Rate 21 32 H 19 Blood Pressure 101/56 L 101/55 L 85/53 L Pulse Oximetry 94 L 96 94 L 04/12/18 04:30 04/12/18 04:45 04/12/18 05:00 Temperature Pulse Rate 60 54 L 56 L Respiratory Rate 20 18 20 Blood Pressure 108/69 116/72 120/74 Pulse Oximetry 94 L 93 L 94 L 04/12/18 05:15 04/12/18 05:30 04/12/18 05:45 Temperature Pulse Rate 56 L 64 56 L Respiratory Rate 20 23 34 H Blood Pressure 102/66 125/99 H 112/77 Pulse Oximetry 96 93 L 94 L 04/12/18 06:00 04/12/18 06:15 Temperature Pulse Rate 59 L 55 L Respiratory Rate 21 20 Blood Pressure 117/72 119/73 Pulse Oximetry 94 L 93 L Intake & Output 04/11/18 04/12/18 04/12/18 18:59 06:59 18:59 Intake Total 1223 / 1223 Balance 1223 / 1223 Weight 86 kg Intake: IV 1223 / 1223 NS Inj 1,000 ML @ 84 mls/hr IV. 223 / 223 CONT .[id number] [facility] Rx#:[id number] NS Inj 1,000 ML @ Wide Open IV. 1000 / 1000 SIG BOLUS ONE Rx#:[id number] Other: Weight On Admission 85.5 kg Narrative: No tremors, no EPS, no psychomotor agitation or retardation, no catatonia - Constitutional no acute distress, mild distress - Routine HEENT Exam Head: Present: normocephalic, atraumatic Eye: Present: EOMI, PERRL ENT: Present: mucous membranes moist Mental Status Examination Appearance: Appropriate Consciousness: Alert Orientation: x4 Motor Activity: Normal gait Speech: Unremarkable Language: Adequate Fund of Knowledge: Adequate Attention and Concentration: Adequate Memory: Unremarkable Mood: Oppositional Affect: Irritable Thought Process & Associations: Intact Thought Content: Appropriate Hallucination Type: None Delusion Type: None Suicidal Ideation: No Suicidal Plan: No Suicidal Intention: No Homicidal Ideation: No Homicidal Plan: No Homicidal Intention: No Insight: Adequate Judgment: Adequate Assessment and Plan - Assessment (1) Adjustment disorder with depressed mood Code(s): F43.21 - Adjustment disorder with depressed mood Status: Acute (2) Adjustment disorder with depressed mood Code(s): F43.21 - Adjustment disorder with depressed mood Status: Acute (3) Alcohol intoxication Code(s): F10.929 - Alcohol use, unspecified with intoxication, unspecified Status: Acute - Plan Plan: On psychiatric evaluation the patient is oppositional, irritable, confrontational. Minimizing recent overdose, stating that he just wanted to go to sleep. When confronted about the fact that he has been in multiple psychotropics in the past, including medication to sleep, he is supposed to know very well that Tylenol, especially in these doses, are little and are not narcotics to help with sleep, the patient becomes quite verbally hostile and irritable. Initially denies depression, anxiety, ant and psychosis. Also confronted about the fact that his in the ER stated that they did have an argument. Patient also initially denied the use of alcohol and illegal drugs. U tox was not performed, but BAL was 250. Patient definitely is no reliable at the moment. Collateral information from his is crucial to complete the psychiatric assessment. I tried to contact her to her cell phone, but she did not answer. Morris act will continue in place. Patient needs psychiatric admission for safety and stabilization. No psychotropics recommended at this moment. The patient needs to in [facility] for potential alcohol withdrawal. We will try to recent Utox. Support, motivation, psych education provided. Transfer to psychiatry was medically stable. Justification for Continued Inpatient Stay: To be admitted to psychiatry. (3) Alcohol intoxication Qualifiers: Complication of substance-induced condition: with unspecified complication Qualified Code(s): F10.929 - Alcohol use, unspecified with intoxication, unspecified
[2018-04-12 16:58] LABS: Calcium 7.7 mg/dL (8.5-10.1); Carbon Dioxide 24.7 meq/L (21.0-32.0)
[2018-04-12 17:01] LABS: Potassium 2.6 meq/L (3.5-5.1)
[2018-04-12] MEDS ORDERED: Magnesium Oxide 400 MG Tablet PO PRN (18:05)
[2018-04-12] MEDS ORDERED: Magnesium Sulfate Inj 4 GM in Sodium Chlor 0.9% Inj 92 ML IV.SIG PRN (18:05)
[2018-04-12] MEDS ORDERED: Potassium Phosphate Inj 30 MMOL in Sodium Chlor 0.9% Inj 250 ML IV.SIG PRN (18:05)
[2018-04-12] MEDS ORDERED: Potassium Chloride Liq 20 MEQ/15 ML UDC PO PRN ×2 (18:05)
[2018-04-12] MEDS ORDERED: Sodium Phosphate Inj 30 MMOL in Sodium Chlor 0.9% Inj 250 ML IV.SIG PRN (18:05)
[2018-04-12] MEDS ORDERED: Potassium Chlor 20 mEq Premix 20 MEQ/100 ML PIGGYBACK IV.SIG PRN (18:05)
[2018-04-12] MEDS ORDERED: Potassium Phosphate 500 MG Soluble Tablet PO PRN ×2 (18:05)
[2018-04-12] MEDS ORDERED: Magnesium Sulfate Inj 2 GM in Sodium Chlor 0.9% Inj 96 ML IV.SIG PRN (18:05)
[2018-04-12] MEDS ORDERED: Potassium Chlor 40 mEq Premix 40 MEQ/100 ML PIGGYBACK IV.SIG PRN ×2 (18:05)
[2018-04-12 19:21] LABS: Amphetamine Screen,Urine Neg (Neg); Barbiturate Screen,Urine Neg (Neg); Cannabinoid Screen,Urine Neg (Neg); Cocaine Screen,Urine Neg (Neg)
[2018-04-12 19:31] LABS: Opiate Screen,Urine Neg (Neg)
[2018-04-12] MEDS: Potassium Chlor 20 mEq Premix 20 MEQ/100 ML PIGGYBACK IV.SIG PRN ×2 (20:13→22:08)
[2018-04-12] MEDS ORDERED: LORazepam 1 MG Tablet PO SCH (22:00)
[2018-04-13] MEDS: Acetylcysteine 20% Oral Liq 6,000 MG/30 ML Vial PO SCH ×2 (00:09→05:59)
[2018-04-13] MEDS: Potassium Chlor 20 mEq Premix 20 MEQ/100 ML PIGGYBACK IV.SIG PRN ×2 (00:10→02:23)
[2018-04-13] MEDS: Sod Chloride 0.9% Inj 1,000 ML IV.CONT SCH ×2 (04:33→15:27)
[2018-04-13] MEDS: Chlorhexidine Gluconate 2% 1 Pack (2 Cloths) TOPICAL SCH (04:34)
[2018-04-13 08:19] LABS: Hematocrit 41.7 % (39.0-51.0); Hemoglobin 14.4 gm/dL (13.0-17.0); Mean Corpuscular HGB Conc 34.7 % (32.0-36.0); Mean Corpuscular Hemoglobin 33.5 pg (27.0-34.0); Mean Corpuscular Volume 96.6 fL (80.0-100.0); Mean Platelet Volume 7.5 fL (7.0-11.0); Platelet Count 175 th/mm3 (150-450); Red Blood Count 4.31 mil/mm3 (4.50-5.90); Red Cell Distribution Width 13.7 % (11.6-17.2); White Blood Count 4.5 th/mm3 (4.0-11.0)
[2018-04-13 08:33] LABS: INR 1.3 Ratio; Prothrombin Time 12.8 sec (9.8-11.6)
[2018-04-13] MEDS: Senna/Docusate Sodium 8.6/50 MG Tablet PO SCH ×2 (08:44→20:19)
[2018-04-13 08:45] LABS: Anion Gap 9 meq/L (5-15); Blood Urea Nitrogen 4 mg/dL (7-18); Carbon Dioxide 24.2 meq/L (21.0-32.0); Chloride 111 meq/L (98-107); Glomerular Filtration Rate Greater Than 89 mL/min (>89); Potassium 3.4 meq/L (3.5-5.1); Sodium 144 meq/L (136-145)
[2018-04-13] MEDS: Acetylcysteine 20% Oral Liq 4 ML Vial PO SCH ×4 (08:45→20:18)
[2018-04-13 09:00] LABS: Calcium 7.6 mg/dL (8.5-10.1); Glucose,Random 92 mg/dL (74-106)
--- NOTE | 2018-04-13 09:48 | P.PNIM ---
Subjective Interval history: No complaints, denies any abdominal pain, chest pain or shortness of breath. Patient, he takes 25 mg of losartan with hydrochlorothiazide at 12.5 mg daily. No suicidal ideations. Physical Exam Vital signs: Vital Signs 04/12/18 10:00 04/12/18 11:00 04/12/18 12:00 Temperature Pulse Rate 60 58 L 61 Respiratory Rate 27 H 21 23 Blood Pressure 117/72 134/84 129/86 Pulse Oximetry 98 95 96 04/12/18 12:15 04/12/18 12:32 04/12/18 13:00 Temperature Pulse Rate 66 62 69 Respiratory Rate 19 13 17 Blood Pressure 120/74 131/86 131/85 Pulse Oximetry 97 94 L 94 L 04/12/18 14:00 04/12/18 15:00 04/12/18 15:01 Temperature Pulse Rate 57 L 91 H 80 Respiratory Rate 19 40 H 28 H Blood Pressure 141/88 H 140/86 Pulse Oximetry 95 97 96 04/12/18 16:00 04/12/18 16:38 04/12/18 17:00 Temperature Pulse Rate 71 72 67 Respiratory Rate 24 24 25 H Blood Pressure 169/98 H 143/89 H 144/96 H Pulse Oximetry 95 94 L 95 04/12/18 18:00 04/12/18 18:11 04/12/18 18:24 Temperature Pulse Rate 67 66 65 Respiratory Rate 24 26 H 18 Blood Pressure 149/104 H 153/105 H 161/100 H Pulse Oximetry 94 L 94 L 95 04/12/18 19:00 04/12/18 20:00 04/12/18 21:00 Temperature 98.1 F Pulse Rate 63 67 65 Respiratory Rate 26 H 27 H 26 H Blood Pressure 149/100 H 142/95 H 152/95 H Pulse Oximetry 95 95 94 L 04/12/18 22:00 04/12/18 23:00 04/12/18 23:01 Temperature Pulse Rate 67 72 67 Respiratory Rate 30 H 30 H 25 H Blood Pressure 146/93 H 159/101 H 158/97 H Pulse Oximetry 96 93 L 94 L 04/13/18 00:00 04/13/18 00:01 04/13/18 01:00 Temperature Pulse Rate 79 80 80 Respiratory Rate 31 H 28 H 32 H Blood Pressure 143/105 H 174/92 H Pulse Oximetry 90 L 94 L 94 L 02/13/19 01:01 04/13/18 02:00 04/13/18 03:00 Temperature Pulse Rate 65 59 L 60 Respiratory Rate 30 H 17 22 Blood Pressure 174/92 H 140/91 H 148/95 H Pulse Oximetry 96 91 L 92 L 04/13/18 04:00 04/13/18 04:05 04/13/18 05:00 Temperature Pulse Rate 87 67 58 L Respiratory Rate 31 H 30 H 19 Blood Pressure 147/97 H 128/80 Pulse Oximetry 93 L 94 L 04/13/18 06:00 Temperature Pulse Rate 54 L Respiratory Rate 18 Blood Pressure 134/82 Pulse Oximetry 96 Intake & Output 04/12/18 04/13/18 04/13/18 18:59 06:59 18:59 Intake Total 777 / 777 2150 / 2150 Output Total 900 / 900 1974 Balance -123 / -123 175 / 175 Weight 88.9 kg Intake: IV 777 / 777 1400 / 1400 NS Inj 1,000 ML @ 84 mls/hr IV. 777 / 777 1000 / 1000 CONT .[id number] [facility] Rx#:[id number] KCl 20 mEq Premix Inj 20 meq In 400 / 400 100 ml @ 50 mls/hr IV.SIG Q2H [facility] Rx#:[id number] Oral 750 / 750 Output: Urine 900 / 900 475 / 475 Stool 1500 / 1500 Other: Date of Last Bowel Movement 04/12/18 04/13/18 # Bowel Movements 1 3 Narrative: Not in distress Pupils equal round reactive, anicteric No JVD Regular rate and rhythm Clear breath sounds Abdomen soft nontender No edema Alert awake and oriented x3, no focal deficits, no suicidal ideations. Results Labs CBC & Chem 7: 04/13/18 08:03 04/13/18 08:03 Assessment and Plan (1) Adjustment disorder with depressed mood: Code(s): F43.21 - Adjustment disorder with depressed mood Status: Acute (2) Adjustment disorder with depressed mood: Code(s): F43.21 - Adjustment disorder with depressed mood Status: Acute (3) Alcohol intoxication: Code(s): F10.929 - Alcohol use, unspecified with intoxication, unspecified Status: Acute Plan This is a 38-year-old male who overdosed with Tylenol Tylenol overdose -Poison Control Center following -Tylenol level now 2.0. Acetylcysteine infusion, finish this evening. INR normal. These normal. Recheck LFTs tomorrow. Hypertension -Labetalol PRN to keep SBP less than 140, start home losartan 25 mg daily, start hydrochlorothiazide if still uncontrolled. Hypokalemia-replace Parkinson's disease -Resume home meds when available Depression, suicidal ideations-Per psychiatry, transferred to psych once ready. DVT GI prophylaxis -Teds SCDs -Early aggressive mobilization -Hold pharmacological DVT prophylaxis due to potential liver failure -Pepcid Level 3 follow-up Code Status: Progress Note: Quality VTE Deep Vein Thrombosis/Pulmonary Embolism Present on Admission: No _ (1) Alcohol intoxication Qualifiers: Complication of substance-induced condition: with unspecified complication Qualified Code(s): F10.929 - Alcohol use, unspecified with intoxication, unspecified
[2018-04-13 17:59] LABS: INR 1.2 Ratio; Prothrombin Time 12.1 sec (9.8-11.6)
[2018-04-13] MEDS ORDERED: Influenza (Quadrivalent) Vaccine 0.5 ML Syringe IM ONE (18:30)
[2018-04-14] MEDS: Acetylcysteine 20% Oral Liq 4 ML Vial PO SCH ×2 (00:53→05:09)
[2018-04-14] MEDS: Sod Chloride 0.9% Inj 1,000 ML IV.CONT SCH ×2 (00:54→13:10)
[2018-04-14] MEDS: Chlorhexidine Gluconate 2% 1 Pack (2 Cloths) TOPICAL SCH (04:52)
[2018-04-14] MEDS: Senna/Docusate Sodium 8.6/50 MG Tablet PO SCH ×2 (08:35→21:07)
--- NOTE | 2018-04-14 10:26 | P.PNIM ---
Subjective Interval history: patient seen and examined in ICU. He reports feeling well. He has no complaints. Physical Exam Vital signs: Vital Signs 04/13/18 11:00 04/13/18 12:00 04/13/18 13:00 Temperature Pulse Rate 72 70 101 H Respiratory Rate 22 Blood Pressure 150/100 H 156/105 H Pulse Oximetry 96 95 97 04/13/18 13:01 04/13/18 14:00 04/13/18 15:00 Temperature Pulse Rate 79 68 67 Respiratory Rate 22 22 Blood Pressure 128/91 H 161/105 H 163/106 H Pulse Oximetry 96 95 95 04/13/18 16:00 04/13/18 17:00 04/13/18 17:10 Temperature Pulse Rate 68 71 82 Respiratory Rate 24 17 Blood Pressure 158/104 H 162/113 H Pulse Oximetry 95 96 04/13/18 18:00 04/13/18 19:00 04/13/18 20:00 Temperature 99 F Pulse Rate 81 74 82 Respiratory Rate 36 H 44 H Blood Pressure 160/109 H 165/117 H 159/107 H Pulse Oximetry 96 04/13/18 20:19 04/13/18 21:00 04/13/18 22:00 Temperature Pulse Rate 65 63 62 Respiratory Rate 17 18 26 H Blood Pressure 153/105 H 149/105 H 141/83 H Pulse Oximetry 94 L 95 95 04/13/18 23:00 04/14/18 00:00 04/14/18 01:00 Temperature Pulse Rate 63 65 52 L Respiratory Rate 31 H 20 18 Blood Pressure 136/85 150/102 H 135/94 H Pulse Oximetry 94 L 94 L 94 L 04/14/18 02:00 04/14/18 03:00 04/14/18 03:01 Temperature Pulse Rate 55 L 63 60 Respiratory Rate 20 16 22 Blood Pressure 151/93 H 146/91 H 146/91 H Pulse Oximetry 93 L 93 L 96 04/14/18 04:00 04/14/18 05:00 04/14/18 06:00 Temperature Pulse Rate 55 L 65 63 Respiratory Rate 22 24 23 Blood Pressure 134/80 154/97 H 149/104 H Pulse Oximetry 96 97 95 Intake & Output 04/13/18 04/14/18 04/14/18 18:59 06:59 18:59 Intake Total 1000 / 1000 1750 / 1750 Output Total 1425 / 1425 3300 / 3300 Balance -425 / -425 -1550 / -1550 Weight 87 kg Intake: IV 1000 / 1000 1000 / 1000 NS Inj 1,000 ML @ 84 mls/hr IV. 1000 / 1000 1000 / 1000 CONT .[id number] [facility] Rx#:[id number] Oral 750 / 750 Output: Urine 1425 / 1425 2200 / 2200 Stool 1100 / 1100 Other: Date of Last Bowel Movement 04/13/18 04/13/18 # Bowel Movements 1 Narrative: Not in distress Pupils equal round reactive, anicteric No JVD Regular rate and rhythm Clear breath sounds Abdomen soft nontender No edema Alert awake and oriented x3, no focal deficits, no suicidal ideations. Results Labs CBC & Chem 7: 04/13/18 08:03 04/14/18 13:47 Assessment and Plan (1) Adjustment disorder with depressed mood: Code(s): F43.21 - Adjustment disorder with depressed mood Status: Acute (2) Adjustment disorder with depressed mood: Code(s): F43.21 - Adjustment disorder with depressed mood Status: Acute (3) Alcohol intoxication: Code(s): F10.929 - Alcohol use, unspecified with intoxication, unspecified Status: Acute Plan 38-year-old male who overdosed with Tylenol Tylenol overdose--clinically stable -Poison Control Center following -Tylenol level now 2.0. On Acetylcysteine infusion Hypertension started home losartan 25 mg daily on 04/13. start hydrochlorothiazide 12.5mg today. Hypokalemia-replace Parkinson's disease -Resume home meds when available Depression, suicidal ideations-Per psychiatry, transferred to psych once ready. DVT GI prophylaxis -Teds SCDs -Early aggressive mobilization -Hold pharmacological DVT prophylaxis due to potential liver failure -Pepcid Progress Note: Quality VTE Deep Vein Thrombosis/Pulmonary Embolism Present on Admission: No _ (1) Alcohol intoxication Qualifiers: Complication of substance-induced condition: with unspecified complication Qualified Code(s): F10.929 - Alcohol use, unspecified with intoxication, unspecified
[2018-04-14] MEDS: Acetylcysteine 20% Oral Liq 6,000 MG/30 ML Vial PO SCH ×2 (10:41→14:24)
[2018-04-14] MEDS ORDERED: hydroCHLOROthiazide 25 MG Tablet PO SCH (11:00)
[2018-04-14 15:51] LABS: Alanine Aminotransferase 60 U/L (12-78); Albumin 3.3 g/dL (3.4-5.0); Alkaline Phosphatase 42 U/L (45-117); Anion Gap 10 meq/L (5-15); Aspartate Aminotransferase 75 U/L (15-37); Blood Urea Nitrogen 7 mg/dL (7-18); Calcium 8.1 mg/dL (8.5-10.1); Carbon Dioxide 23.6 meq/L (21.0-32.0); Chloride 110 meq/L (98-107); Glomerular Filtration Rate Greater Than 89 mL/min (>89); Glucose,Random 111 mg/dL (74-106); Potassium 3.5 meq/L (3.5-5.1); Sodium 144 meq/L (136-145); Total Protein 6.7 g/dL (6.4-8.2)
[2018-04-15] MEDS: Sod Chloride 0.9% Inj 1,000 ML IV.CONT SCH (00:17)
[2018-04-15] MEDS: Chlorhexidine Gluconate 2% 1 Pack (2 Cloths) TOPICAL SCH (03:13)
[2018-04-15] MEDS: Senna/Docusate Sodium 8.6/50 MG Tablet PO SCH (08:08)
[2018-04-15] MEDS ORDERED: hydroCHLOROthiazide 25 MG Tablet PO SCH (09:00)
--- NOTE | 2018-04-15 09:08 | P.PNIM ---
Subjective Interval history: did not sleep, other than that he has no complaints. Physical Exam Vital signs: Vital Signs 04/14/18 10:00 04/14/18 12:00 04/14/18 14:00 Temperature 98.5 F Pulse Rate 63 70 69 Respiratory Rate 19 Blood Pressure 145/105 H Pulse Oximetry 92 L 04/14/18 16:00 04/14/18 18:00 04/14/18 20:00 Temperature 98.5 F Pulse Rate 60 60 65 Respiratory Rate 18 18 Blood Pressure 159/100 H 141/90 H Pulse Oximetry 96 92 L 04/14/18 22:00 04/15/18 00:00 04/15/18 02:00 Temperature 98.4 F Pulse Rate 58 L 56 L 54 L Respiratory Rate 18 Blood Pressure 131/84 Pulse Oximetry 93 L 04/15/18 04:00 04/15/18 06:00 Temperature 98.5 F Pulse Rate 58 L 66 Respiratory Rate 18 Blood Pressure 149/102 H Pulse Oximetry 96 Intake & Output 04/14/18 04/15/18 04/15/18 18:59 06:59 18:59 Intake Total 1700 / 1700 1120 / 1120 Output Total 2000 / 1999 800 / 800 Balance -300 / -300 320 / 320 Weight 88 kg Intake: IV 1000 / 1000 1000 / 1000 NS Inj 1,000 ML @ 84 mls/hr IV. 1000 / 1000 1000 / 1000 CONT .[id number] [facility] Rx#:[id number] Oral 700 / 700 120 / 120 Output: Urine 1999 / 1999 800 / 800 Other: Date of Last Bowel Movement 04/13/18 04/13/18 # Bowel Movements 0 0 Narrative: Not in distress Pupils equal round reactive, anicteric No JVD Regular rate and rhythm Clear breath sounds Abdomen soft nontender No edema Alert awake and oriented x3, no focal deficits, no suicidal ideations. Results Labs CBC & Chem 7: 04/13/18 08:03 04/14/18 13:47 Assessment and Plan (1) Adjustment disorder with depressed mood: Code(s): F43.21 - Adjustment disorder with depressed mood Status: Acute (2) Adjustment disorder with depressed mood: Code(s): F43.21 - Adjustment disorder with depressed mood Status: Acute (3) Alcohol intoxication: Code(s): F10.929 - Alcohol use, unspecified with intoxication, unspecified Status: Acute Plan 38-year-old male who overdosed with Tylenol Tylenol overdose--clinically stable -Poison Control Center following -Tylenol level now 2.0. patient clinically stable, Acetylcysteine has been discontinued. Hypertension started home losartan 25 mg daily, hydrochlorothiazide increased to 25mg, BP trends improving. Hypokalemia-replete as needed. Parkinson's disease -Resume home meds when available Depression, suicidal ideations-was seen by psych, needs psych inpatient. Dispo-patient is clinically stable for transfer to psych unit. Progress Note: Quality VTE Deep Vein Thrombosis/Pulmonary Embolism Present on Admission: No _ (1) Alcohol intoxication Qualifiers: Complication of substance-induced condition: with unspecified complication Qualified Code(s): F10.929 - Alcohol use, unspecified with intoxication, unspecified
--- NOTE | 2018-04-15 09:22 | P.DS ---
DS: Providers Date of admission: 04/11/18 22:40 Primary care physician: UNKNOWN Consults: 04/12/18 02:33 Consult to Psychiatry Routine Consulting Provider: Dayo Weaver Reason for Consultation: Tylenol overdose Notified:: Office Spoke with:: Ramos Date Notified:: 04/12/18 Time Notified:: 02:57 Ordering Provider: JENNIFER 04/12/18 18:07 Consult to Hospitalist Routine Consulting Provider: Jenn Dhillon Reason for Consultation: Tylenol overdose. Hemodynamically stable. Notified:: Service Spoke with:: Wandy Date Notified:: 04/12/18 Time Notified:: 18:10 Ordering Provider: BEHZAD Brief History from admission: 38-year-old male with history of Parkinson's disease presents with his for evaluation of Tylenol overdose. reports that prior to arrival they were arguing. The patient reportedly took a large amount of Tylenol in order to help him sleep. The reports that it was a 225 tablet bottle of 500 mg Tylenol and a third of it had been used prior to the ingestion. After the ingestion only 20 or 30 tablets were left. Therefore the estimated ingestion was 125 tablets of 500 mg Tylenol at approximately 7:30 PM this evening. No other coingestions. The patient's does report that he is a daily drinker, he denies drinking any alcohol today. Denies illicit drug use. Denies any desire to hurt himself. Denies any suicidal homicidal ideation. He is currently complaining of nausea. He has no other complaints at this time. DS: Diagnosis Discharge Diagnosis (1) Adjustment disorder with depressed mood: Status: Acute (2) Adjustment disorder with depressed mood: Status: Acute (3) Alcohol intoxication: Status: Acute DS: Summary Patient was admitted to the ICU, poison control contacted. Patient was started on Acetylcysteine infusion. Tylenol level trended down from 392 on admission to <2 by.Acetylcysteine was discontinued.There were no stigmata for liver failure. Liver enzymes on presentation were normal, AST mildly elevated during his hospital stay to 75, CMP can be monitored to ensure resolution. For his depressed mood, patient was seen by the psychiatrist who recommended psych admission once medically stable. Patient's blood pressure was high and his usual HCTZ and Losartan were started, his BP trends have improved. He had hypokalemia,potassium was replenished. He can receive oral potassium as needed. Patient is now medically stable for transfer to the inpatient psych unit. Time Spent with Patient Total time spent providing and/or coordinating discharge services:>30 MINUTES Quality: VTE Deep Vein Thrombosis/Pulmonary Embolism Present on Admission: No Results Labs on day of discharge: Labs from last 24 hours 04/14/18 13:47 Sodium 144 Potassium 3.5 Chloride 110 H Carbon Dioxide 23.6 Anion Gap 10 BUN 7 Creatinine 0.77 Estimated GFR Greater than 89 Random Glucose 111 H Calcium 8.1 L Total Bilirubin 0.3 Direct Bilirubin 0.1 Indirect Bilirubin 0.2 AST 75 H ALT 60 Alkaline Phosphatase 42 L Total Protein 6.7 Albumin 3.3 L Discharge Plan Discharge Disposition Patient Disposition: 65 Disc To Psych Care Facility Discharge Condition Condition: Stable Discharge Order Discharge Orders: Discharge Order (Routine); Ordered 04/15/18 Ordered By: Anni Stevenson Discharge Details Anticipated Discharge Date: 04/15/18 Physicians Team Primary Care Provider: UNKNOWN, Attending Provider: Anni Stevenson Other Providers: Dayo Weaver Rxs /Orders / Referrals /Forms Prescriptions: New losartan [Cozaar] 25 mg Tablet 25 mg PO DAILY 30 Days Qty: 30 RF: 0 hydrochlorothiazide 25 mg Tablet 25 mg PO DAILY 30 Days Qty: 30 RF: 0 No Action No Known Home Medications RF: 0 Referrals: UNKNOWN, [Primary Care Provider] - See Instructions Discharge Interventions Interventions: Discharge Planning - Case Management Last Done: 04/12/18 14:22 Status ED Status: Left Department
[2018-04-15 11:33] LABS: Albumin 3.7 g/dL (3.4-5.0); Anion Gap 7 meq/L (5-15); Aspartate Aminotransferase 149 U/L (15-37); Blood Urea Nitrogen 7 mg/dL (7-18); Calcium 8.8 mg/dL (8.5-10.1); Carbon Dioxide 27.8 meq/L (21.0-32.0); Chloride 106 meq/L (98-107); Glomerular Filtration Rate Greater Than 89 mL/min (>89); Glucose,Random 80 mg/dL (74-106); Potassium 3.6 meq/L (3.5-5.1); Sodium 141 meq/L (136-145)
--- NOTE | 2018-04-15 11:33 | P.PNPSY ---
Subjective Remarks: The patient was seen today for psychiatric reevaluation. Patient initially upset, demanding to be discharged. The patient repeats that he did not overdose with suicidal intentions, but to go to sleep. When I confronted the patient about for what reason he took so many Tylenols to go to sleep, he becomes a little bit irritable, verbally hostile, but finally states that he was not thinking right. He reports that he has been very anxious in the ICU, feeling depressed to be here, reports that he has been having problems communicated with nurses. Reports difficult to sleep at night. The anxiety is episodic, increases as the day goes by, actually increases at night when patient is about to go to sleep. He is fully oriented x3, no attention deficit , no fluctuation of consciousness. As per nursing charts, the patient has been verbally hostile, his has been very upset, requesting to speak with psychiatry, stated that the patient does not need to be at the [facility]. Mental Status Examination Appearance: Appropriate Consciousness: Alert Orientation: x4 Motor Activity: Normal gait Speech: Unremarkable Language: Adequate Fund of Knowledge: Adequate Attention and Concentration: Adequate Memory: Unremarkable Mood: Oppositional Affect: Irritable Thought Process & Associations: Intact Thought Content: Appropriate Hallucination Type: None Delusion Type: None Suicidal Ideation: No Suicidal Plan: No Suicidal Intention: No Homicidal Ideation: No Homicidal Plan: No Homicidal Intention: No Insight: Adequate Judgment: Adequate Assessment and Plan - Assessment (1) Adjustment disorder with depressed mood Code(s): F43.21 - Adjustment disorder with depressed mood Status: Acute (2) Adjustment disorder with depressed mood Code(s): F43.21 - Adjustment disorder with depressed mood Status: Acute (3) Alcohol intoxication Code(s): F10.929 - Alcohol use, unspecified with intoxication, unspecified Status: Acute - Plan Plan: Psychiatric evaluation patient is irritable, reports anxiety, reports depression in the context of being in the ICU. Also reports difficulty sleeping at night and put the medication with medical team. Patient continues to minimize recent suicidal attempt. At some point he does admit that he overdosed because he was stressed. Even though the patient and , both are stated that the patient has no suicidal, his overdose was very lethal and dangerous and the patient needs to be admitted to psychiatry for a deep psychiatric psychosocial assessment, longitudinal observation, to evaluate the need of treatment and to coordinate safe discharge. Order clonazepam 0.5 mg twice daily for his anxiety. To be admitted to psychiatry. Justification for Continued Inpatient Stay: To be admitted and psychiatry. (3) Alcohol intoxication Qualifiers: Complication of substance-induced condition: with unspecified complication Qualified Code(s): F10.929 - Alcohol use, unspecified with intoxication, unspecified
[2018-04-15 11:37] LABS: Alanine Aminotransferase 162 U/L (12-78); Alkaline Phosphatase 45 U/L (45-117); Total Protein 7.4 g/dL (6.4-8.2)
== END 2018-04-15 15:10 | DRG 918 ==
LOC: NEPC 20:18 → NEDA 22:40 → HIMC 04-12 02:40
PROVIDERS: ADMIT Hospitalist; ATTEND Hospitalist
DX: Z87.891 Personal history of nicotine dependence; T39.1X2A Poisoning by 4-Aminophenol derivatives, intentional self-harm, initial encounter; Z81.8 Family history of other mental and behavioral disorders; F43.10 Post-traumatic stress disorder, unspecified; I10 Essential (primary) hypertension; G20 Parkinson's disease; F43.21 Adjustment disorder with depressed mood; F10.129 Alcohol abuse with intoxication, unspecified; Y90.8 Blood alcohol level of 240 mg/100 ml or more; Z79.899 Other long term (current) drug therapy; G47.00 Insomnia, unspecified; Z23 Encounter for immunization; E87.6 Hypokalemia
CPT/HCPCS: 80048; 80053; 80076; 80307; 83690; 83735; 84132; 85025; 85027; 85610; 85730; 87641; 90658; 90686; 90761; 90772; 90774; 90775; 90782; 90784; 90791; 92610; 93005; 96361; 96372; 96374; 96375; 99285; C8952; G0195; J2405; J2550; J2765; J3480; J7030; Q2038

== ENCOUNTER 2018-04-15 13:59 | Inpatient (IN) ==
[2018-04-15] MEDS ORDERED: Bisacodyl 10 MG Supp RECTAL PRN (15:38)
[2018-04-15] MEDS ORDERED: Aluminum/Magnesium/Simethacone Susp 30 ML UDC PO PRN (15:38)
[2018-04-15] MEDS: Senna/Docusate Sodium 8.6/50 MG Tablet PO SCH (21:56)
[2018-04-16] MEDS: Senna/Docusate Sodium 8.6/50 MG Tablet PO SCH ×4 (08:32→20:53)
[2018-04-16] MEDS: hydroCHLOROthiazide 25 MG Tablet PO SCH (08:32)
[2018-04-16 08:39] LABS: Anion Gap 7 meq/L (5-15); Blood Urea Nitrogen 9 mg/dL (7-18); Calcium 9.5 mg/dL (8.5-10.1); Chloride 104 meq/L (98-107); Cholesterol 242 mg/dL (120-200); Glomerular Filtration Rate Greater Than 89 mL/min (>89); Glucose,Random 102 mg/dL (74-106); Potassium 3.5 meq/L (3.5-5.1); Sodium 138 meq/L (136-145)
[2018-04-16 08:49] LABS: Chol/HDL Ratio 4.82 Ratio; HDL Cholesterol 50.2 mg/dL (40.0-60.0); LDL Cholesterol,Calculated 155 mg/dL (0-99); Triglycerides 186 mg/dL (42-150)
--- NOTE | 2018-04-16 12:20 | P.CONIM ---
History of Present Illness Service: [facility] Consult date: 04/16/18 Requesting Physician: Beny Sethi Reason for Consult: medical management, recent Tylenol overdose Primary Care Provider: UNKNOWN Chief Complaint: left ear pain History of Present Illness: Patient is a 38-year-old male with a past medical history significant for Parkinson's disease. He initially presented to the hospital on 04/12/2018 with a reported Tylenol overdose. Patient states he had taken a large amount of Tylenol in order to help him sleep. Patient was admitted to the ICU and the Poison Control Center was contacted. Patient was started on acetylcysteine infusion. His Tylenol level trended down from 392 on admission to less than 2 by time of discharge. His acetylcysteine was discontinued. There were no stigmata for liver failure. Patient's initial liver enzymes on presentation were normal, however, his AST was mildly elevated during his hospitalization. Patient was also seen by psychiatry who recommended psych admission once medically stable. Patient is now admitted under the care of the psychiatric team and the hospitalist service has been consulted for continued medical management. At time of evaluation patient reports left sided ear pain. He denies any change in his hearing, tinnitus, bloody or clear drainage from his ear. He does have some tenderness on external palpation, however, no redness or drainage was noted. Patient's CMP was reviewed and shows an AST level of 149 and ALT of 162. His remaining CBC and CMP were unremarkable. Review of Systems Review of Systems: all other systems reviewed are negative [facility] Medical History Medical History AA (alcohol abuse) (Acute) Hypertension (Acute) Parkinson disease (Acute) Surgical History Surgical History S/P deep brain stimulator placement (Acute) Family History Family History Uncle Depression Social History Social History Substance History: No History of Abuse Second Hand Smoke Exposure: Yes Smoking Status: Current every day smoker Tobacco Type: Cigarettes How Often Do You Have a Drink Containing Alcohol: 2 to 3 times a week Recent Travel in [facility] within the Last 8 Weeks: No Recent Out of Country Travel within the Last 8 Weeks: No Immunization History Tetanus Immunization: <5 Years Hx Influenza Vaccine This Season: Yes Medications and Allergies Allergies Allergy/AdvReac Type Severity Reaction Status Date / Time No Known Allergies Allergy Verified 04/11/18 20:32 Home Medications Medication Instructions Recorded Confirmed Type clonidine HCl 0.1 mg PO Q6H PRN 04/15/18 04/15/18 History Active Medications: Active Medications Al Hydrox/Mg Hydrox/Simethicone (Mag-Al Plus Susp Liq) 30 ml PO Q6H PRN PRN Reason: DYSPEPSIA Al Hydroxide/Mg Hydroxide (Milk Of Magnesia Liq) 30 ml PO Q12H PRN PRN Reason: Mild Constipation Bisacodyl (Dulcolax Supp) 10 mg RECTAL DAILY PRN PRN Reason: SEVERE CONSITIPATION Diphenhydramine HCl (Benadryl) 50 mg PO HS PRN PRN Reason: INSOMNIA Hydrochlorothiazide (Hydrodiuril) 25 mg PO DAILY [facility] Last Admin: 04/16/18 08:32 Dose: 25 mg Ibuprofen (Motrin) 600 mg PO Q8HR PRN PRN Reason: PAIN 1-10 AND/OR FEVER >101F Lactulose (Lactulose Liq) 30 ml PO DAILY PRN PRN Reason: SEVERE CONSITIPATION Lorazepam (Ativan) 1 mg PO Q6H PRN PRN Reason: MODERATE TO SEVERE ANXIETY Losartan Potassium (Cozaar) 25 mg PO DAILY [facility] Last Admin: 04/16/18 08:32 Dose: 25 mg Senna/Docusate Sodium (Ariadne-Colace) 1 tab PO BID [facility] Last Admin: 04/16/18 10:30 Dose: Not Given Sennosides (Senokot) 17.2 mg PO Q12H PRN PRN Reason: Moderate Constipation Physical Exam Vital signs: Vital Signs 04/15/18 18:00 04/16/18 06:00 Temperature 98.8 F 98.0 F Pulse Rate 70 58 L Respiratory Rate 18 16 Blood Pressure 151/96 H 121/66 Pulse Oximetry 96 Intake & Output 04/15/18 04/16/18 04/16/18 18:59 06:59 18:59 Intake Total 480 / 480 340 / 340 Balance 480 / 480 340 / 340 Weight 85.5 kg Intake: Oral 480 / 480 240 / 240 Oral Supplement 100 / 100 Other: # Voids 1 # Bowel Movements 0 Weight On Admission 85.5 kg Constitutional no acute distress and cooperative Routine HEENT Exam Head: Present normocephalic and atraumatic Eye: Present PERRL ENT: Present mucous membranes moist Routine Neck Exam Present supple, full ROM and trachea midline; Absent JVD and tracheal deviation Routine Respiratory Exam Present CTA bilaterally; Absent accessory muscle use and wheezes Routine Cardiovascular Exam Present RRR, S1 and S2; Absent murmur Routine Abdominal Exam Present soft; Absent tenderness and distended Routine Skin Exam Present intact; Absent erythema Routine Neurological Exam Present alert, oriented X3 and CN II-XII intact; Absent sensory deficit and motor deficit Routine Psychiatric Exam Present depressed Results Labs CBC & Chem 7: 04/16/18 07:48 Assessment and Plan Plan Patient is a 38-year-old male with a past medical history significant for Parkinson's the most recent Tylenol overdose. He was treated in the ICU and evaluated by psychiatry with recommendation for the psychiatric inpatient admission once cleared medically. Hospitalist team has been consulted for continued evaluation and medical management. Adjustment disorder with depressed mood -primary management per psychiatric team Transaminitis -pt with recent Tylenol overdose, subsequent visit -pt with elevated AST and ALT levels, alk phos and total bili within normal limits -repeat CMP in am Left external ear pain -no redness, drainage or change in hearing -no s/s of infection, denies recent URI -monitor Parkinson's -resume home meds MDM: self Code: Full GI ppx: not indicated DVT ppx: SCD's, ambulatory Discussed with: RN, patient, supervising MD Dispo: per primary team
[2018-04-16 12:34] LABS: Hemoglobin A1c 5.5 % (4.3-6.0)
--- NOTE | 2018-04-16 13:05 | ECG ---
Date Performed: 04/16/2018 Time Performed: 12:46:27 PTAGE: 38 years EKG: Sinus rhythm NORMAL ECG No significant change from prior electrocardiogram. PREVIOUS TRACING : 04/11/2018 20.45 DOCTOR: Diaz Howard Interpretating Date/Time 04/16/2018 13:03:45
--- NOTE | 2018-04-16 17:57 | P.HPPSY ---
Provisional Diagnosis Admission Date: April 15, 2018 15:16 Competence Certification of Person's Competence To Provide Express and Informed Consent I have personally examined Ildefonso Love, a person being served at [facility] on, April 16, 2018 1753. Express and informed consent means consent voluntarily given in writing, by a competent person, after sufficient explanation and disclosure of the subject matter involved to enable the person to make a knowing and willful decision without any element of force, fraud, deceit, duress, or other form of constraint or coercion. This person is 18 years of age or older, is not now known to be incompetent to consent to treatment with a guardian advocate, and does not have a health care surrogate or proxy currently making medical treatment decisions. I have found this person to be one of the following: [X] Competent to provide express and informed consent, as defined above, for voluntary admission to this facility and is competent to provide express and informed consent for treatment. He/she has the consistent capacity to make well reasoned, willful, and knowing decisions concerning his or her medical or mental health treatment. The person fully and consistently understands the purpose of the admission for examination/placement and is fully capable of personally exercising all rights assured [place] Incompetent to provide express and informed consent to voluntary admission, and this is incompetent to provide express and informed consent to treatment. The person must be transferred to involuntary status and a petition for a guardian advocate filed with the Circuit Court. [] Refusing to provide express and informed consent to voluntary admission but is competent to provide express and informed consent for treatment. The person must be discharged or transferred to involuntary status. Form shall be completed within 24 hours of a person's arrival at the receiving facility and filed in the clinical record of each person: 1. Admitted on a voluntary basis 2. Permitted to provide express and informed consent to his/her own treatment 3. Allowed to transfer from involuntary to voluntary status 4. Prior to permitting a person to consent to his or her own treatment after having been previously found incompetent to consent to treatment. History of Present Illness Capacity: Has capacity Chief Complaint: OD History of Present Illness: Patient is a 38-year-old male with Parkinson's disease without a psychiatric history presenting after an overdose. Per record patient took approximately 125 tablets of Tylenol. Patient is evasive and denies having overdose purposely. He also claims he could take that many pills in 2 swigs of medication followed by water. Patient says he simply did not sleep for a whole week and was trying to go to sleep. Patient understands that the Tylenol was not p.m. and he understands the damage to the Tylenol could have done to him. Patient is perseverative on discharge. He does admit to an anxious and depressed mood. Stressors include severe financial stressors and the stress that puts in his relationship with his . She also has concerns with her generalized anxiety. Denies panic attacks Past psych: Patient denies inpatient or outpatient history. However he says he has been on Zoloft for 6 months. Denies any other suicide attempts Past medical: Parkinson's disease Past Famhx: His cousin and uncle both have depression Past Social: Patient has 2 kids who are grown. 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 Patient drinks alcohol 4-5 times a month and occasionally binges. Patient says he was drinking during his attempt yesterday - Inpatient Certification I certify that the inpatient services were ordered in accordance with Medicare regulations governing the order. This includes certification that hospital inpatient services are reasonable and necessary and in the case of services not specified as inpatient-only under 42 CFR 419.22(n), that they are appropriately provided as inpatient services in accordance to with the 2-midnight benchmark under 43 CFR 412.3(e) I certify that inpatient psychiatric hospital services are medically necessary. Evaluation and treatment and/or diagnostic testing are expected to improve the patient's condition. The patient needs on a daily basis, active treatment furnished directly by or requiring the supervision of inpatient psychiatric facility personnel. Estimated Total Length of Stay (Days): 7 Plans for Post Hospital Care: Not yet determined Review of Systems All other systems reviewed negative except as stated in HPI [facility] - History History Provided By: Patient - Medical History Medical History: Medical History (Last Reviewed 04/16/18 @ 17:42 by Greta Abernathy APRN) AA (alcohol abuse) Hypertension Parkinson disease - Surgical History Surgical History: Surgical History (Last Reviewed 04/16/18 @ 17:42 by Greta Abernathy APRN) S/P deep brain stimulator placement - Family History Family History: Family History (Last Reviewed 04/16/18 @ 17:42 by Greta Abernathy APRN) Uncle Depression - Tobacco History Second Hand Smoke Exposure: Yes Tobacco Use In Past 30 Days: Yes Smoking Status: Current every day smoker Tobacco Type: Cigarettes - Alcohol History How Often Do You Have a Drink Containing Alcohol: 2 to 3 times a week - Substance Use History Substance History: No History of Abuse - Travel History Recent Travel in the [place] Within the Last 8 Weeks: No Recent Travel Out of the Country Within the Last 8 Weeks: No - Immunization History Tetanus Immunization: <5 Years Hx Influenza Vaccine This Season: Yes Medications and Allergies Active Medications: Active Medications Al Hydrox/Mg Hydrox/Simethicone (Mag-Al Plus Susp Liq) 30 ml PO Q6H PRN PRN Reason: DYSPEPSIA Al Hydroxide/Mg Hydroxide (Milk Of Magnesia Liq) 30 ml PO Q12H PRN PRN Reason: Mild Constipation Bisacodyl (Dulcolax Supp) 10 mg RECTAL DAILY PRN PRN Reason: SEVERE CONSITIPATION Diphenhydramine HCl (Benadryl) 50 mg PO HS PRN PRN Reason: INSOMNIA Hydrochlorothiazide (Hydrodiuril) 25 mg PO DAILY [facility] Last Admin: 04/16/18 08:32 Dose: 25 mg Ibuprofen (Motrin) 600 mg PO Q8HR PRN PRN Reason: PAIN 1-10 AND/OR FEVER >101F Lactulose (Lactulose Liq) 30 ml PO DAILY PRN PRN Reason: SEVERE CONSITIPATION Lorazepam (Ativan) 1 mg PO Q6H PRN PRN Reason: MODERATE TO SEVERE ANXIETY Losartan Potassium (Cozaar) 25 mg PO DAILY [facility] Last Admin: 04/16/18 08:32 Dose: 25 mg Senna/Docusate Sodium (Ariadne-Colace) 1 tab PO BID [facility] Last Admin: 04/16/18 10:30 Dose: Not Given Sennosides (Senokot) 17.2 mg PO Q12H PRN PRN Reason: Moderate Constipation Allergies Allergy/AdvReac Type Severity Reaction Status Date / Time No Known Allergies Allergy Verified 04/11/18 20:32 Home Medications Medication Instructions Recorded Confirmed Type clonidine HCl 0.1 mg PO Q6H PRN 04/15/18 04/15/18 History Results - Labs CBC & Chem 7: 04/16/18 07:48 Labs: Laboratory Results - last 24 hr 04/16/18 04/16/18 07:48 07:48 Sodium 138 Potassium 3.5 Chloride 104 Carbon Dioxide 27.0 Anion Gap 7 BUN 9 Creatinine 0.84 Estimated GFR Greater than 89 Random Glucose 102 Hemoglobin A1c 5.5 Calcium 9.5 Triglycerides 186 H Cholesterol 242 H LDL Cholesterol, Calc 155 H HDL Cholesterol 50.2 Cholesterol/HDL Ratio 4.82 TSH 1.330 Exam Vital signs: Vital Signs 04/15/18 18:00 04/16/18 06:00 Temperature 98.8 F 98.0 F Pulse Rate 70 58 L Respiratory Rate 18 16 Blood Pressure 151/96 H 121/66 Pulse Oximetry 96 Intake & Output 04/15/18 04/16/18 04/16/18 18:59 06:59 18:59 Intake Total 480 / 480 340 / 340 Balance 480 / 480 340 / 340 Weight 85.5 kg Intake: Oral 480 / 480 240 / 240 Oral Supplement 100 / 100 Other: # Voids 1 # Bowel Movements 0 Weight On Admission 85.5 kg Mental Status Examination Appearance: Appropriate Consciousness: Alert Orientation: x4 Motor Activity: Normal gait Speech: Hesitant Fund of Knowledge: Adequate Attention and Concentration: Adequate Memory: Unremarkable Mood: Sad, Anxious Affect: Sad, Anxious Thought Process & Associations: Intact Hallucination Type: None Delusion Type: None Suicidal Ideation: No Suicidal Plan: No Suicidal Intention: No Homicidal Ideation: No Homicidal Plan: No Homicidal Intention: No Insight: Poor Judgment: Poor Assessment and Plan - Assessment (1) Adjustment disorder with depressed mood Code(s): F43.21 - Adjustment disorder with depressed mood Status: Acute - Plan Plan: Patient gives consent to start Paxil 20 mg p.o. nightly, Ativan 1 mg p.o. every 6 hours as needed for anxiety and trazodone 50 mg p.o. nightly for sleep. He can sign voluntary Justification for Continued Inpatient Stay: Patient would decompensate in a less restrictive setting
[2018-04-16] MEDS: LORazepam 1 MG Tablet PO PRN (18:35)
[2018-04-16] MEDS ORDERED: traZODone 50 MG Tablet PO SCH (21:00)
[2018-04-17] MEDS: Senna/Docusate Sodium 8.6/50 MG Tablet PO SCH ×2 (09:11→20:32)
[2018-04-17] MEDS: hydroCHLOROthiazide 25 MG Tablet PO SCH (09:11)
[2018-04-17 10:23] LABS: Baso % (Auto) 0.4 % (0.0-2.0); Eos % (Auto) 0.9 % (0.0-4.0); Hematocrit 48.7 % (39.0-51.0); Hemoglobin 16.7 gm/dL (13.0-17.0); Lymph # (Auto) 1.1 th/mm3 (1.0-4.8); Lymph % (Auto) 23.8 % (9.0-44.0); Mean Corpuscular HGB Conc 34.3 % (32.0-36.0); Mean Corpuscular Hemoglobin 32.9 pg (27.0-34.0); Mean Corpuscular Volume 95.8 fL (80.0-100.0); Mean Platelet Volume 7.9 fL (7.0-11.0); Mono # (Auto) 0.5 th/mm3 (0.0-0.9); Mono % (Auto) 9.6 % (0.0-8.0); Neut # (Auto) 3.1 th/mm3 (1.8-7.7); Neut % (Auto) 65.3 % (16.0-70.0); Platelet Count 203 th/mm3 (150-450); Red Blood Count 5.08 mil/mm3 (4.50-5.90); Red Cell Distribution Width 13.5 % (11.6-17.2); White Blood Count 4.8 th/mm3 (4.0-11.0)
[2018-04-17 10:58] LABS: Anion Gap 8 meq/L (5-15); Aspartate Aminotransferase 32 U/L (15-37); Blood Urea Nitrogen 14 mg/dL (7-18); Calcium 9.4 mg/dL (8.5-10.1); Carbon Dioxide 26.1 meq/L (21.0-32.0); Chloride 104 meq/L (98-107); Glomerular Filtration Rate 85 mL/min (>89); Glucose,Random 119 mg/dL (74-106); Potassium 3.7 meq/L (3.5-5.1); Sodium 138 meq/L (136-145)
[2018-04-17 10:59] LABS: Alanine Aminotransferase 109 U/L (12-78)
[2018-04-17 11:01] LABS: Alkaline Phosphatase 51 U/L (45-117); Total Protein 8.2 g/dL (6.4-8.2)
--- NOTE | 2018-04-17 12:35 | P.PNIM ---
Subjective Interval history: Follow-up visit transaminitis Patient is sitting up in a recliner chair in the activity room. He denies any pain and/or discomfort. Liver enzymes trending down. Discussed lipid panel findings with patient. Discussed treatments options medication, lifestyle and dietary modifications. Patient states he would like to try dietary changes first. No chest pain, shortness of breath, abdominal pain, nausea or vomiting. No cough, fever or chills. Physical Exam Vital signs: Vital Signs 04/16/18 18:29 04/17/18 06:00 Temperature 98.4 F 98.2 F Pulse Rate 80 65 Respiratory Rate 18 15 Blood Pressure 145/93 H 124/76 Pulse Oximetry 96 95 Intake & Output 04/16/18 04/17/18 04/17/18 18:59 06:59 18:59 Intake Total 1320 / 1320 Balance 1320 / 1320 Intake: Oral 1320 / 1320 Other: # Voids 2 Narrative: GENERAL: well developed, well nourished, no acute distress SKIN: Warm and dry. HEAD: Normocephalic. EYES: No scleral icterus. No injection or drainage. NECK: Supple, trachea midline. No JVD or lymphadenopathy. CARDIOVASCULAR: Regular rate and rhythm without murmurs, gallops, or rubs. RESPIRATORY: Breath sounds equal bilaterally. No accessory muscle use. GASTROINTESTINAL: Abdomen soft, non-tender, nondistended. MUSCULOSKELETAL: No cyanosis, or edema. Results Labs CBC & Chem 7: 04/17/18 09:52 04/17/18 09:52 Assessment and Plan (1) Adjustment disorder with depressed mood: Code(s): F43.21 - Adjustment disorder with depressed mood Status: Acute Plan Patient is a 38-year-old male with a past medical history significant for Parkinson's the most recent Tylenol overdose. He was treated in the ICU and evaluated by psychiatry with recommendation for the psychiatric inpatient admission once cleared medically. Hospitalist team has been consulted for continued evaluation and medical management. Adjustment disorder with depressed mood -primary management per psychiatric team Transaminitis -pt with recent Tylenol overdose, subsequent visit -liver enzymes reviewed and improved Left external ear pain -no redness, drainage or change in hearing -no s/s of infection, denies recent URI Parkinson's -resume home meds MDM: self Code: Full GI ppx: not indicated DVT ppx: SCD's, ambulatory Discussed with: RN, patient, supervising MD Dispo: per primary team Thank you for this consultation. Hospitalist team will sign off. No change to current treatment plan is indicated. Please re-consult PRN if needed. Progress Note: Quality VTE Deep Vein Thrombosis/Pulmonary Embolism Present on Admission: No
--- NOTE | 2018-04-17 15:09 | P.PNPSY ---
Subjective Chief Complaint: OD Remarks: Reviewed electronic medical record and discuss with nursing staff. Patient in day room watching television. He has Parkinson's Disease and is struggling with the assisted prognosis. He was started on Trazodone 50 mg yesterday but endorses that he did not sleep all night. He stated that he eventually fell asleep but could not maintain sleep. Will increase the Trazodone to 100 mg qhs. He has some anxiety , but feels he is better at managing how he feels. He did go outside and participated in activities on the unit. Review of Systems All other systems reviewed negative except as stated in HPI Mental Status Examination Appearance: Appropriate Consciousness: Alert Orientation: x4 Motor Activity: Normal gait Speech: Hesitant Fund of Knowledge: Adequate Attention and Concentration: Adequate Memory: Unremarkable Mood: Sad Affect: Sad Thought Process & Associations: Intact Hallucination Type: None Delusion Type: None Suicidal Ideation: No Suicidal Plan: No Suicidal Intention: No Homicidal Ideation: No Homicidal Plan: No Homicidal Intention: No Insight: Fair Judgment: Impulsive Assessment and Plan - Assessment (1) Adjustment disorder with depressed mood Code(s): F43.21 - Adjustment disorder with depressed mood Status: Acute - Plan Plan: 04/17/18 continue current treatment plan. Justification for Continued Inpatient Stay: Moving patient to a less restrictive environment may result in his decompensation.
[2018-04-17] MEDS: LORazepam 1 MG Tablet PO PRN (15:40)
[2018-04-17 17:36] VITALS: TEMP 97.9; O2SAT 96
[2018-04-17] MEDS ORDERED: traZODone 100 MG Tablet PO SCH (21:00)
[2018-04-18] MEDS: LORazepam 1 MG Tablet PO PRN ×2 (01:56→09:05)
[2018-04-18] MEDS: Ibuprofen 600 MG Tablet PO PRN ×2 (01:56→10:54)
[2018-04-18 05:59] VITALS: BP 148/88; PULSE 87; RESP 15
[2018-04-18] MEDS: hydroCHLOROthiazide 25 MG Tablet PO SCH (09:05)
[2018-04-18] MEDS: Senna/Docusate Sodium 8.6/50 MG Tablet PO SCH (09:10)
--- NOTE | 2018-04-18 12:55 | P.CONIM ---
History of Present Illness Service: [facility] Consult date: 04/18/18 Requesting Physician: Beny Sethi Reason for Consult: broken tooth Primary Care Provider: UNKNOWN Chief Complaint: broken molar left bottom History of Present Illness: Patient is a 38-year-old male with a past medical history significant for Parkinson's disease. He initially presented to the hospital on 04/12/2018 with a reported Tylenol overdose. Patient states he had taken a large amount of Tylenol in order to help him sleep. Patient was admitted to the ICU and the Poison Control Center was contacted. Patient was started on acetylcysteine infusion. His Tylenol level trended down from 392 on admission to less than 2 by time of discharge. Patient is currently admitted to the psychiatric inpatient unit and the Hospitalist team has been consulted for a broken tooth. Patient seen and examined in his room. He reports his left bottom molar tooth broke yesterday evening while eating dinner. Patient had previously complained of left ear pain and now believes that this may have been secondary to a toothache. He rates the pain in his left jaw extending into his left ear as 6/10. No swelling noted to left side of face or neck. Small piece of tooth remains in place. CBC from yesterday reviewed and shows a WBC of 4.8. Review of Systems Review of Systems: all other systems reviewed are negative [facility] Medical History Medical History AA (alcohol abuse) (Acute) Hypertension (Acute) Parkinson disease (Acute) Surgical History Surgical History S/P deep brain stimulator placement (Acute) Family History Family History Uncle Depression Social History Social History Substance History: Active Abuse Second Hand Smoke Exposure: Yes Smoking Status: Current every day smoker Tobacco Type: Cigarettes How Often Do You Have a Drink Containing Alcohol: 2 to 3 times a week Recent Travel in [facility] within the Last 8 Weeks: No Recent Out of Country Travel within the Last 8 Weeks: No Substance Abuse Detail Alcohol: Substance Use Status: Active Route Used Substance Abuse: By Mouth Substance Frequency: 5-6 beers sevearl nights a week Substance Abuse Comment: Patient admits he is an alcoholic. His stated he used to attend AA meetings but most of the people were court ordered and not taking it seriously so he quit going. Reason for Use: Calm Down, Feels Good and Sleep Immunization History Tetanus Immunization: <5 Years Hx Influenza Vaccine This Season: Yes Medications and Allergies Allergies Allergy/AdvReac Type Severity Reaction Status Date / Time No Known Allergies Allergy Verified 04/11/18 20:32 Active Medications: Active Medications Al Hydrox/Mg Hydrox/Simethicone (Mag-Al Plus Susp Liq) 30 ml PO Q6H PRN PRN Reason: DYSPEPSIA Al Hydroxide/Mg Hydroxide (Milk Of Magnesia Liq) 30 ml PO Q12H PRN PRN Reason: Mild Constipation Bisacodyl (Dulcolax Supp) 10 mg RECTAL DAILY PRN PRN Reason: SEVERE CONSITIPATION Hydrochlorothiazide (Hydrodiuril) 25 mg PO DAILY [facility] Last Admin: 04/18/18 09:05 Dose: 25 mg Ibuprofen (Motrin) 600 mg PO Q8HR PRN PRN Reason: PAIN 1-10 AND/OR FEVER >101F Last Admin: 04/18/18 10:54 Dose: 600 mg Lactulose (Lactulose Liq) 30 ml PO DAILY PRN PRN Reason: SEVERE CONSITIPATION Lorazepam (Ativan) 1 mg PO Q6H PRN PRN Reason: MODERATE TO SEVERE ANXIETY Last Admin: 04/18/18 09:05 Dose: 1 mg Losartan Potassium (Cozaar) 25 mg PO DAILY [facility] Last Admin: 04/18/18 09:05 Dose: 25 mg Paroxetine HCl (Paxil) 20 mg PO DAILY [facility] Last Admin: 04/18/18 09:05 Dose: 20 mg Senna/Docusate Sodium (Ariadne-Colace) 1 tab PO BID [facility] Last Admin: 04/18/18 09:10 Dose: Not Given Sennosides (Senokot) 17.2 mg PO Q12H PRN PRN Reason: Moderate Constipation Trazodone HCl (Desyrel) 100 mg PO HS [facility] Last Admin: 04/17/18 20:31 Dose: 100 mg Physical Exam Vital signs: Vital Signs 04/17/18 17:34 04/18/18 05:58 Temperature 97.9 F 97.9 F Pulse Rate 80 87 Respiratory Rate 18 15 Blood Pressure 126/83 148/88 H Pulse Oximetry 96 96 Intake & Output 04/17/18 04/18/18 04/18/18 18:59 06:59 18:59 Intake Total 1200 / 1200 Balance 1200 / 1200 Weight 86.4 kg Intake: Oral 1200 / 1200 Other: # Voids 3 Narrative: GENERAL: well developed, well nourished, no acute distress SKIN: Warm and dry. HEAD: Normocephalic. EYES: No scleral icterus. No injection or drainage. NECK: Supple, trachea midline. No JVD or lymphadenopathy. CARDIOVASCULAR: Regular rate and rhythm without murmurs, gallops, or rubs. RESPIRATORY: Breath sounds equal bilaterally. No accessory muscle use. GASTROINTESTINAL: Abdomen soft, non-tender, nondistended. MUSCULOSKELETAL: No cyanosis, or edema. Results Labs CBC & Chem 7: 04/17/18 09:52 04/17/18 09:52 Assessment and Plan (1) Adjustment disorder with depressed mood: Code(s): F43.21 - Adjustment disorder with depressed mood Status: Acute Plan Patient is a 38-year-old male with a past medical history significant for Parkinson's the most recent Tylenol overdose. He was treated in the ICU and evaluated by psychiatry with recommendation for the psychiatric inpatient admission once cleared medically. Hospitalist team has been consulted for evluation of broken tooth. Adjustment disorder with depressed mood -primary management per psychiatric team Left broken molar -pt stated tooth broke off while having dinner the previous evening -Augmentin PO BID x 7 days, pt advised to follow up with dentist post discharge for evaluation and possible extraction of remaining tooth -Peridex BID, spoke with pharmacy and Orajel not currently available -Motrin PRN for pain Transaminitis -pt with recent Tylenol overdose, subsequent visit -liver enzymes reviewed and improved Parkinson's -resume home meds MDM: self Code: Full GI ppx: not indicated DVT ppx: SCD's, ambulatory Discussed with: RN, patient, supervising MD Dispo: per primary team Thank you for this consultation. Patient is being discharged per primary team. Follow up with dentist as an outpatient.
[2018-04-18] MEDS ORDERED: Acetaminophen 500 MG Tablet PO PRN (12:58)
[2018-04-18] MEDS ORDERED: Amoxicillin/Clavulanate 875/125 MG Tablet PO SCH (13:45)
[2018-04-18] MEDS ORDERED: Chlorhexidine Gluconate 0.12% Liq 15 ML UDC SWISH-SPIT SCH (13:45)
--- NOTE | 2018-04-18 17:12 | P.DSPSY ---
Psychiatry Discharge Summary Inpatient Psychiatric care?: Yes Advance Directives: No Mental Health Advance Directive: No Health Care Proxy: No - Admission Admission Date: April 15, 2018 15:16 - Admission Diagnosis (1) Adjustment disorder with depressed mood Code(s): F43.21 - Adjustment disorder with depressed mood Brief History: Patient is a 38-year-old male with Parkinson's disease without a psychiatric history presenting after an overdose. Per record patient took approximately 125 tablets of Tylenol. Patient is evasive and denies having overdose purposely. He also claims he could take that many pills in 2 swigs of medication followed by water. Patient says he simply did not sleep for a whole week and was trying to go to sleep. Patient understands that the Tylenol was not p.m. and he understands the damage to the Tylenol could have done to him. Patient is perseverative on discharge. He does admit to an anxious and depressed mood. Stressors include severe financial stressors and the stress that puts in his relationship with his . She also has concerns with her generalized anxiety. Denies panic attacks Past psych: Patient denies inpatient or outpatient history. However he says he has been on Zoloft for 6 months. Denies any other suicide attempts Past medical: Parkinson's disease Past Famhx: His cousin and uncle both have depression Past Social: Patient has 2 kids who are grown. 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 Patient drinks alcohol 4-5 times a month and occasionally binges. 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 Patient was admitted to a locked, inpatient psychiatric unit. Appropriate precautions were in place throughout patient's hospital stay. Patient was seen and examined on the unit by psychiatry. Psychotropic medications were adjusted. There was no evidence of any suicidality or homicidality on the inpatient unit. Patient's mood improved with the benefit of psychopharmacological treatment and had no behavioral disturbance since admission. Patient was noted to have reached stable mood, noted to participate and engage in treatment and interact with staff adequately. Patient noted to be future oriented with plans to continue treatment and outpatient follow-up appointments for continuity of care. Counselor has arranged discharge plan which patient will be discharged back to who expressed no safety concerns with patient being discharged. On the day of discharge: Patient seen and examined; chart reviewed. Case discussed with nurse and counselor. No behavioral issues overnight. On my examination today, the patient denies any suicidal homicidal ideation, intent or plan on direct questioning and contracts for safety. Patient denies any perceptional disturbances and no delusional material verbalized today. Patient denies any side effects from medication and has understanding of medication regimen and education. No physical complaints. Suicide and violence risk assessment on day of discharge both suggest lower imminent risk, and the patient's level of function is adequate for plan level of outpatient care. Patient has maximized benefit from this inpatient psychiatric hospital stay and will be discharged with discharge plan as arranged by counselor. Patient advised to return to psychiatric emergency room for any concerning psychiatric symptoms. Patient agrees with plan. - Discharge Discharge Date: 04/18/18 - Discharge Diagnosis (1) Adjustment disorder with depressed mood Code(s): F43.21 - Adjustment disorder with depressed mood Status: Acute Discharge Disposition: Home - Discharge Instructions Discharge Diet: Heart Healthy Diet Activities You Can Perform: Weight Bearing As Tolerat - Discharge Time > 30 minutes Mental Status Examination Appearance: Appropriate Consciousness: Alert Orientation: x4 Motor Activity: Normal gait Speech: Unremarkable Language: Adequate Fund of Knowledge: Adequate Attention and Concentration: Adequate Memory: Unremarkable Mood: Appropriate Affect: Appropriate Thought Process & Associations: Intact Thought Content: Appropriate Hallucination Type: None Delusion Type: None Suicidal Ideation: No Suicidal Plan: No Suicidal Intention: No Homicidal Ideation: No Homicidal Plan: No Homicidal Intention: No Insight: Fair Judgment: Impulsive Discharge/Advance Care Plan - Results Vital Signs: Last Vital Signs Temp 97.9 F 04/18/18 05:58 Pulse 87 04/18/18 05:58 Resp 15 04/18/18 05:58 BP 148/88 H 04/18/18 05:58 Pulse Ox 96 04/18/18 05:58 Lab Results: Laboratory Results Hemoglobin A1c 5.5 % (4.3-6.0) 04/16/18 07:48 Triglycerides 186 mg/dL (42-150) H 04/16/18 07:48 Cholesterol 242 mg/dL (120-200) H 04/16/18 07:48 LDL Cholesterol, Calc 155 mg/dL (0-99) H 04/16/18 07:48 HDL Cholesterol 50.2 mg/dL (40.0-60.0) 04/16/18 07:48 TSH 1.330 uIU/mL (0.358-3.740) 04/16/18 07:48 Summary of Procedures: none Pending Results: None - Medications Number of antipsychotic medications at discharge: 0 - Discharge Care Plan Goals to Promote Your Health: * To prevent worsening of your condition and complications * To maintain your health at the optimal level Directions to Meet Your Goals: Take your medications as prescribed Follow your dietary instruction Follow activity as directed Keep your appointments as scheduled Take your immunizations and boosters as scheduled If your symptoms worsen call your PCP, if no PCP go to Urgent Care Center or Emergency Room For 21/09 questions related to your inpatient stay or results of tests pending at discharge, please contact Dr. Beny Sethi MD at Smoking is Dangerous to Your Health. Avoid second hand smoking
== END 2018-04-18 15:20 | disposition home or self-care (01) | DRG 881 ==
LOC: H4EA 15:16 → H260 04-17 15:51
PROVIDERS: ADMIT Student in an Organized Health Care Education/Training Program; ATTEND Student in an Organized Health Care Education/Training Program